=== PATIENT | female | born 1940 | race Caucasian/White ===

== ENCOUNTER → 2016-09-20 | Outpatient (CLI) | payer MEDICARE, OTHER ==
[~2016-09-20] MED LIST: ATOR-22 PO; HYDR25TA5 PO; LISI40TA PO; PRLSR20 PO; TAMO20TA47 PO
--- NOTE | 2016-09-20 13:33 | MAMMOGRAPHY REPORT ---
UNILATERAL RIGHT DIGITAL DIAGNOSTIC MAMMOGRAM TOMOSYNTHESIS WITH CAD AND TARGETED RIGHT ULTRASOUND: 09/20/2016 CLINICAL HISTORY: 76-year-old female presents to establish new baseline in the right breast status p ost lumpectomy and radiation. TECHNIQUE: Right breast CC and MLO to the digital and some of this is images, spot magnification rig ht CC and ML views were obtained. Current study was also evaluated with a Computer Aided Detection (CAD) system. COMPARISON: Comparison is made to exams dated: 03/30/2016 specimen, 03/30/2016 localization, 6 mammogram, and 03/01/2016 ultrasound biopsy - [facility]. BREAST COMPOSITION: The tissue of the right breast is heterogeneously dense, which may obscure smal l masses. FINDINGS: There is mild diffuse skin thickening and trabecular edema of the right breast, likely sec ondary to recent treatment. A linear scar marker overlies the 11:00 through 1:00 anterior breast. There are benign rim calcifications and mild vascular calcifications. Diffuse faint punctate microc alcifications are seen throughout the right breast. No new suspicious grouping or cluster of microc alcifications. No obvious mass or unexpected architectural distortion. Targeted ultrasound was performed along the surgical scar extending from the 11:00 and 12:00 periare olar right breast the 1:00 axis, 1 cm from the nipple. There is a hypoechoic architectural distorti on. No evidence of a discrete solid or cystic mass. These findings are compatible with postsurgica l change. IMPRESSION: ACR-BI-RADS CATEGORY 3: PROBABLY BENIGN, TARGETED ULTRASOUND ACR-BI-RADS CATEGORY 3: [place] OBABLY BENIGN Expected post-therapeutic changes in the right breast, without mammographic or targeted sonographic evidence of malignancy. Recommend follow-up diagnostic mammography in 6 months to ensure stability for one year after treatment in the right breast, and for annual mammography of the left breast. Th ofelia results and recommendations were discussed with the patient at the time of the exam. Approximately 10% of breast cancers are not detected with mammography. A negative mammographic repor t should not delay biopsy if a clinically suggestive mass is present. Zaira Valdovinos M.D. ay/:09/20/2016 11:00:10 Supervisor In Charge: Hope Lamar, [facility] letter sent: Follow Up Recommended 3 BI-RADS Code: ACR-BI-RADS Category 3: Probably Benign Ultrasound BI-RADS: ACR-BI-RADS Category 3: P robably Benign
== END | disposition home or self-care (01) ==
LOC: C.MAMM 10:21
PROVIDERS: ATTEND Radiology Radiation Oncology
DX: Z08 Encounter for follow-up examination after completed treatment for malignant neoplasm (principal); Z85.3 Personal history of malignant neoplasm of breast; Z98.890 Other specified postprocedural states; Z92.3 Personal history of irradiation

== ENCOUNTER → 2016-10-07 | Outpatient (CLI) | payer MEDICARE ==
[2016-10-07 13:01] LABS: ALT/SGPT 20 U/L (12-78); AST/SGOT 20 U/L (15-37); BLOOD UREA NITROGEN 17 mg/dl (7-18); BUN/CREATININE RATIO 14.4 (10-20); CALCIUM 9.1 mg/dl (8.5-10.1); CARBON DIOXIDE 26 mmol/L (21-32); CHLORIDE 95 mmol/L (98-107); CHOLESTEROL 190 mg/dl (0-200); GLUCOSE 89 mg/dl (70-99); POTASSIUM 3.8 mmol/L (3.5-5.1); SODIUM 132 mmol/L (136-145); TRIGLYCERIDES 152 mg/dl (0-150); VERY LOW DENSITY LIPOPROT CALC 30 mg/dl
[2016-10-07 13:05] LABS: ALB/GLOB RATIO 1.1 (0.9-2); ALKALINE PHOSPHATASE 57 U/L (45-117); HDL CHOLESTEROL 94 mg/dl
== END | disposition home or self-care (01) ==
LOC: C.LABSPEC 12:30
PROVIDERS: ATTEND Internal Medicine
DX: I10 Essential (primary) hypertension (principal); E78.5 Hyperlipidemia, unspecified

== ENCOUNTER → 2017-01-25 | Outpatient (CLI) | payer MEDICARE, OTHER ==
[2017-01-25 13:28] VITALS: BP 122/83; PULSE 79; TEMP 36.6; O2SAT 95
--- NOTE | 2017-01-25 16:46 | Radiation Oncology Follow-Up ---
Radiation Oncology Follow-Up Date of Visit Jan 25, 2017. (Mariana Florentino PA-C) Reason For Visit 6 month follow-up (Mariana Florentino PA-C) Radiation Completion Date finished 06-18-2016 (Mariana Florentino PA-C) Diagnosis (1) Ductal carcinoma in situ (DCIS) of right breast Status: Resolved Stage: 0 Permanent Comment: STAGING: Right breast, DCIS, grade 1, ER/[place] positive, Tis, stage 0 TREATMENT: 1. Lumpectomy - 03/30/2016 - Dr. Jeter (Surgery) 2. Tamoxifen - Dr. Lanier (Medical Oncology) 3. Status post completion of radiation therapy 06/18/2016. Received 5130 cGy utilizing hypo-fractionation. Last Edited By: Mariana Florentino on Jun 28, 2016 15:27 (Mariana Florentino PA-C) History of Present Illness Ms. Melendez is a 76-year-old postmenopausal female who underwent bilateral screening mammograms on 02/18/2016. Her screening mammogram revealed a 4.4 mm nodular asymmetry in the anterior right breast with possible right upper inner microcalcifications. The patient subsequently underwent unilateral right diagnostic mammogram on 02/25/2016 which confirmed a 4 mm mass in the anterior retroareolar right breast. Real-time high-resolution sonographic evaluation confirmed a slightly hypoechoic microlobulated mass measuring 4.6 mm in the greatest dimension. The radiologist recommended an ultrasound-guided biopsy which was completed on 03/01/2016 and revealed intraductal papilloma with low- grade ductal carcinoma in situ that was estrogen receptor positive and progesterone receptor positive. The patient was subsequently referred to Dr. Quinten Jeter who discussed treatment options and recommended a lumpectomy which was completed on 03/30/2016. Pathology revealed an intraductal papilloma with low-grade ductal carcinoma in situ. Margins were negative for the ductal carcinoma in situ however the papilloma was present at the posterior margin. The tumor was grade 1 and no necrosis was noted. The patient was subsequently referred to Dr. Ken Lanier for medical oncology who recommended tamoxifen and adjuvant radiation therapy. We are now seeing the patient in consultation to discuss the role of radiation therapy. Overall, the patient is doing relatively well. She has healed up well from surgery. She has mentioned that she is going on vacation in the next several weeks and would not like to start her treatment until afterwards. She has no other complaints. She underwent a CT simulation and was found to be a candidate for hypo- fractionation. Radiation was completed 06/18/2016. She received 5130 cGy (Mariana Florentino PA-C) Interim History She's been doing well over this past 6 months. She denies any changes to her breast. She has occasional tenderness on the lateral side. She has noted no masses. There is no change of the axilla. She's had no swelling of her arm. She is up-to-date on mammography. She had been on tamoxifen. She stopped the medication on her own at the end of the month. She was having symptoms of nausea and bladder irritation. She stated after stopping the medication the symptoms resolved. She is going to talk to Dr. Lanier about the side effects at her next appointment. She has an appointment scheduled within the next few weeks. (Mariana Florentino PA-C) Allergies Coded Allergies: Sulfa Antibiotics (Verified Allergy, Unknown, SWELLING, 03/22/16) Home Medications Scheduled Atorvastatin (Lipitor), 20 MG PO QAM Hydrochlorothiazide (Hydrochlorothiazide), 1 TAB PO QAM Lisinopril (Prinivil), 40 MG PO QAM Omeprazole (Prilosec), 20 MG PO QAM Review of Systems Gastrointestinal: Symptoms: WNL Oral: Symptoms: No Problems Respiratory: Symptoms: WNL Urinary: Symptoms: WNL Skin: Symptoms: No Problems Other Skin Symptoms: " dry " Breast: Right Upper Arm Measurement: 35.8 Right Mid Arm Measurement: 27.0 Right Wrist Measurement: 16.8 Left Upper Arm Measurement: 35.8 Left Mid Arm Measurement: 26.5 Left Wrist Measurement: 16.3 Arm Dominence: Right Patient Cosmetic Evaluation: Good Staff Cosmetic Evalaluation: Good (Mariana Florentino PA-C) Physical Exam Vital Signs Date Time Temp Pulse Resp B/P (MAP) Pulse Ox O2 Delivery O2 Flow Rate FiO2 01/25/17 13:28 36.6 79 16 122/83 95 Pain: Pain Onset: years ago Pain Duration: gets worse at times Side: Bilateral Patient Pain Scale: 0 - 10 Initial Pain Intensity: 4.0 Pain Description: Soreness Additional Comments: stiffness General Appearance: no apparent distress Eyes: normal inspection, EOMI ENT: normal ENT inspection, hearing grossly normal Neck: no adenopathy, thyroid normal Respiratory/Chest: lungs clear, no respiratory distress, no accessory muscle use Breast: Breast examination reveals well-healed incision of the right breast. There are no masses or tenderness and no axillary adenopathy. She has no telangiectasia. There are no skin retractions or nipple changes. Using the Berkley score cosmesis she has a in excellent outcome. The left breast showed no masses or tenderness and no axillary adenopathy. Cardiovascular: regular rate, rhythm, no gallop, no murmur Abdomen: non tender Extremities: no pedal edema Neurologic/Psychiatric: no motor/sensory deficits, alert, normal mood/affect Skin: warm/dry Lymphatic: no adenopathy (Mariana Florentino PA-C) Additional Studies UNILATERAL RIGHT DIGITAL DIAGNOSTIC MAMMOGRAM TOMOSYNTHESIS WITH CAD AND TARGETED RIGHT ULTRASOUND: 09/20/2016 CLINICAL HISTORY: 76-year-old female presents to establish new baseline in the right breast status post lumpectomy and radiation. TECHNIQUE: Right breast CC and MLO to the digital and some of this is images, spot magnification right CC and ML views were obtained. Current study was also evaluated with a Computer Aided Detection (CAD) system. COMPARISON: Comparison is made to exams dated: 03/30/2016 specimen, 03/30/2016 localization, 03/01/2016 mammogram, and 03/01/2016 ultrasound biopsy - [facility]. BREAST COMPOSITION: The tissue of the right breast is heterogeneously dense, which may obscure small masses. FINDINGS: There is mild diffuse skin thickening and trabecular edema of the right breast, likely secondary to recent treatment. A linear scar marker overlies the 11:00 through 1:00 anterior breast. There are benign rim calcifications and mild vascular calcifications. Diffuse faint punctate microcalcifications are seen throughout the right breast. No new suspicious grouping or cluster of microcalcifications. No obvious mass or unexpected architectural distortion. Targeted ultrasound was performed along the surgical scar extending from the 11: 00 and 12:00 periareolar right breast the 1:00 axis, 1 cm from the nipple. There is a hypoechoic architectural distortion. No evidence of a discrete solid or cystic mass. These findings are compatible with postsurgical change. IMPRESSION: ACR-BI-RADS CATEGORY 3: PROBABLY BENIGN, TARGETED ULTRASOUND ACR-BI -RADS CATEGORY 3: PROBABLY BENIGN Expected post-therapeutic changes in the right breast, without mammographic or targeted sonographic evidence of malignancy. Recommend follow-up diagnostic mammography in 6 months to ensure stability for one year after treatment in the right breast, and for annual mammography of the left breast. These results and recommendations were discussed with the patient at the time of the exam. Approximately 10% of breast cancers are not detected with mammography. A negative mammographic report should not delay biopsy if a clinically suggestive mass is present. Zaira Valdovinos M.D. ay/:09/20/2016 11:00:10 Anesthesia Attending: Hope Lamar, [facility] letter sent: Follow Up Recommended 3 BI-RADS Code: ACR-BI-RADS Category 3: Probably Benign Ultrasound BI-RADS: ACR- BI-RADS Category 3: Probably Benign Dictated by: Zaira Valdovinos MD Signed by: Zaira Valdovinos MD (Mairana Florentino PA-C) Assessment & Plan Plan: Patient was seen and examined by Dr. Dunn. Continue with scheduled mammography. She'll see Dr. Lanier and discuss her symptoms that she was having in regards to the tamoxifen. Continue regular follow-up with her primary care physician. We asked her to return to our office in 1 year. She may call if she has any questions or concerns in the interim. (Mariana Florentino PA-C) I agree with note created by Mariana Florentino PA-C. I reviewed the patient's chart and information with her. I have examined and evaluated the patient. I reviewed relevant clinical information and answered the patient's and/or family' s questions. (Veeral. Dunn MD) Total Time In Follow-Up I spent 20 minutes speaking to the patient and performing examination. I spent 15 minutes reviewing information and completing this note. (Mariana Florentino PA-C) I spent 15 minutes examining and counseling the patient. (Veeral. Dunn MD) Copy To Tk Porter M.D.; Ken Lanier D.O.
== END | disposition home or self-care (01) ==
LOC: C.ONC 13:11
PROVIDERS: ATTEND Physician Assistant Medical
DX: Z08 Encounter for follow-up examination after completed treatment for malignant neoplasm (principal); Z92.3 Personal history of irradiation; Z85.3 Personal history of malignant neoplasm of breast

== ENCOUNTER → 2017-02-11 | Outpatient (CLI) | payer MEDICARE ==
[~2017-02-11] MED LIST changes: +OPTIRAY 320 IV PRN
[2017-02-11 14:41] LABS: MEAN CORPUSCULAR HEMOGLOBIN 32.3 pg (25-34); MEAN CORPUSCULAR HGB CONC 34.4 g/dl (32-36); MEAN PLATELET VOLUME 9.3 fL (7.4-10.4); PLATELET COUNT 236 K/uL (130-400); RED BLOOD COUNT 4.15 M/uL (4.2-5.4); WHITE BLOOD COUNT 10.14 K/uL (4.8-10.8)
[2017-02-11 15:01] LABS: URINE APPEARANCE CLEAR (CLEAR); URINE BILIRUBIN NEG (NEG); URINE COLOR DK YELLOW; URINE EPITHELIAL CELL AUTO >30 /lpf (0-5); URINE NITRITE NEG (NEG); URINE SPECIFIC GRAVITY 1.016 (1.000-1.030); UROBILINOGEN NEG (NEG)
[2017-02-11 15:12] LABS: MANUAL MICROSCOPIC REQUIRED? NO; REVIEW REQ? NO
[2017-02-11 15:22] LABS: ALT/SGPT 24 U/L (12-78); BLOOD UREA NITROGEN 11 mg/dl (7-18); BUN/CREATININE RATIO 11.7 (10-20); CALCIUM 9.5 mg/dl (8.5-10.1); CARBON DIOXIDE 28 mmol/L (21-32); CHLORIDE 99 mmol/L (98-107); CREATININE 0.94 mg/dl (0.60-1.20); GLUCOSE 89 mg/dl (70-99); POTASSIUM 3.7 mmol/L (3.5-5.1); SODIUM 134 mmol/L (136-145)
[2017-02-11 15:25] LABS: ALB/GLOB RATIO 0.9 (0.9-2); ALKALINE PHOSPHATASE 54 U/L (45-117); AST/SGOT 19 U/L (15-37)
--- NOTE | 2017-02-11 17:39 | DIAGNOSTIC IMAGING REPORT ---
CT SCAN OF THE ABDOMEN AND PELVIS WITH IV CONTRAST CLINICAL HISTORY: Left lower quadrant abdominal pain. COMPARISON STUDY: Abdominal CT dated 06/04/2008. TECHNIQUE: Following the IV administration of 93 cc of Optiray 320, CT scan of the abdomen and pelvis is performed from the lung bases to the proximal femora. Images are reviewed in the axial, sagittal, and coronal planes. IV contrast was administered without complication. Automated dose control exposure was utilized. CT DOSE: 332.42 mGy.cm FINDINGS: Lung bases: The heart is normal in size and without pericardial effusion. There is subpleural reticulation and dependent atelectasis seen at both lung bases. No airspace consolidation or pleural effusion is identified. Liver: The contrast-enhanced liver is normal in size, contour, and attenuation. There is no intrahepatic biliary ductal dilatation. The hepatic veins and portal veins are patent. Gallbladder: Unremarkable. Spleen: Normal in size and attenuation. Pancreas: Unremarkable. Adrenal glands: Unremarkable. Kidneys: The contrast enhanced kidneys demonstrate mild cortical atrophy and are without hydronephrosis. The kidneys enhance symmetrically. Abdominal vasculature: The abdominal aorta is normal in course and caliber noting moderate atherosclerotic calcification. Bowel: The small bowel and colon are normal in course and caliber. There is moderate colonic diverticulosis. There is wall thickening and pericolonic inflammation seen involving the distal descending/proximal sigmoid colon consistent with acute diverticulitis. There is no evidence of diverticular abscess. The appendix is well-visualized and normal. Peritoneum: There is no intraperitoneal free air or abdominal ascites. Suture material is noted in the retroperitoneal space. Lymphadenopathy: No pathologically enlarged lymph nodes are seen in the abdomen or pelvis. Pelvic viscera: The bladder, uterus, and adnexa are normal as visualized. There is evidence of pelvic floor prolapse. Skeletal structures: The skeletal structures are osteopenic. There is moderate lumbosacral spondylosis as well as mild scoliosis. No lytic or blastic lesions are seen. IMPRESSION: 1. Moderate colonic diverticulosis with evidence of acute diverticulitis involving the distal descending/proximal sigmoid colon. 2. No intraperitoneal free air is seen and there is no evidence of diverticular abscess. 3. Additional findings as above. Electronically signed by: Pb Cadena M.D. 02/11/2017 5:38 PM Dictated Date/Time: 02/11/2017 5:11 PM
== END | disposition home or self-care (01) ==
LOC: C.CTS 14:06
PROVIDERS: ATTEND Internal Medicine
DX: R10.32 Left lower quadrant pain (principal); K57.30 Diverticulosis of large intestine without perforation or abscess without bleeding

== ENCOUNTER → 2017-03-21 | Outpatient (CLI) | payer MEDICARE, OTHER ==
[~2017-03-21] MED LIST changes: -OPTIRAY 320 IV PRN; -TAMO20TA47 PO
--- NOTE | 2017-03-21 12:29 | MAMMOGRAPHY REPORT ---
BILATERAL DIGITAL DIAGNOSTIC MAMMOGRAM TOMOSYNTHESIS WITH CAD: 03/21/2017 CLINICAL HISTORY: 76 year-old woman presents for bilateral screening mammography. She has a history of right breast cancer diagnosed 1 year ago, status post breast conservation treatment. TECHNIQUE: Bilateral CC and MLO 2-D and tomosynthesis images, spot magnification right CC and ML view s were obtained. Current study was also evaluated with a Computer Aided Detection (CAD) system. COMPARISON: Comparison is made to exams dated: 09/20/2016 ultrasound, 09/20/2016 mammogram, 03/30/2016 sp ecimen, 03/30/2016 localization, 03/01/2016 mammogram, and 03/01/2016 ultrasound biopsy - [facility]. BREAST COMPOSITION: There are scattered areas of fibroglandular density in both breasts. FINDINGS: There is mild diffuse skin thickening and trabecular edema of the right breast, a linear sc ar marker overlies the anterior aspect of the right breast. There is expected underlying architectur al distortion and a few benign-appearing calcifications including rim calcifications and tram-trackin g calcifications of the right breast. No new suspicious grouping or cluster of microcalcifications a re seen in the right breast. There is a stable circumscribed lobulated mass in the superior right br east on the MLO view, stable dating back to at least 2007, most likely an intramammary lymph node. N o suspicious mass, architectural distortion or cluster of suspicious microcalcifications is seen in t he right breast. Stable mammographic appearance of the left breast, with a few benign-appearing round and punctate li rocalcifications and mild vascular calcification. No suspicious mass, architectural distortion or clu ster of suspicious microcalcifications is seen in the left breast. IMPRESSION: ACR-BI-RADS CATEGORY 3: PROBABLY BENIGN Stable mammographic appearance of the breasts, including posttreatment changes in the right breast. Another six-month follow-up diagnostic right mammogram and possible ultrasound is recommended to ensu re longer stability after treatment, and to ensure stability of tram tracking calcifications which mo st likely represent vascular calcifications or postsurgical change. Recommend routine screening of t he left breast in 12 months. These results and recommendations were discussed with the patient at the time of the exam. Approximately 10% of breast cancers are not detected with mammography. A negative mammographic report should not delay biopsy if a clinically suggestive mass is present. Zaira Valdovinos M.D. ay/:03/21/2017 10:55:31 Distance Education Coordinator: Hope HILL(R)(M), [facility] letter sent: Follow Up Recommended 3 BI-RADS Code: ACR-BI-RADS Category 3: Probably Benign
== END | disposition home or self-care (01) ==
LOC: C.MAMM 10:19
PROVIDERS: ATTEND Physician Assistant Medical
DX: D05.11 Intraductal carcinoma in situ of right breast (principal); R92.1 Mammographic calcification found on diagnostic imaging of breast; Z98.890 Other specified postprocedural states

== ENCOUNTER → 2017-04-08 | Outpatient (CLI) | payer MEDICARE ==
[2017-04-08 13:15] LABS: CHOLESTEROL 180 mg/dl (0-200); CHOLESTEROL/HDL RATIO 2.2; HDL CHOLESTEROL 81 mg/dl; TRIGLYCERIDES 116 mg/dl (0-150); VERY LOW DENSITY LIPOPROT CALC 23 mg/dl
== END | disposition home or self-care (01) ==
LOC: C.LABSPEC 12:19
PROVIDERS: ATTEND Internal Medicine
DX: E78.5 Hyperlipidemia, unspecified (principal)

== ENCOUNTER → 2017-09-02 | Outpatient (CLI) | payer MEDICARE ==
[2017-09-02 13:15] LABS: BASO % 0.3 %; BASO ABS # 0.02 K/uL (0-0.2); EOS % 1.1 %; EOS ABS # 0.07 K/uL (0-0.5); HEMATOCRIT 40.6 % (37-47); HEMOGLOBIN 13.8 g/dL (12.0-16.0); IG# 0.01 K/uL (0.00-0.02); LYMPH % 26.7 %; LYMPH ABS # 1.73 K/uL (1.2-3.4); MEAN CELL VOLUME 93.8 fL (80-100); MEAN CORPUSCULAR HEMOGLOBIN 31.9 pg (25-34); MEAN PLATELET VOLUME 10.7 fL (7.4-10.4); MONO % 7.1 %; MONO ABS # 0.46 K/uL (0.11-0.59); NEUT % 64.6 %; PLATELET COUNT 288 K/uL (130-400); RED CELL DISTRIBUTION WIDTH CV 12.9 % (11.5-14.5); RED CELL DISTRIBUTION WIDTH SD 44.2 fL (36.4-46.3); WHITE BLOOD COUNT 6.49 K/uL (4.8-10.8)
[2017-09-02 15:45] LABS: ALBUMIN 3.7 gm/dl (3.4-5.0); ALT/SGPT 25 U/L (12-78); AST/SGOT 21 U/L (15-37); BLOOD UREA NITROGEN 16 mg/dl (7-18); CALCIUM 9.2 mg/dl (8.5-10.1); CARBON DIOXIDE 29 mmol/L (21-32); CREATININE 1.14 mg/dl (0.60-1.20); GLUCOSE 123 mg/dl (70-99); POTASSIUM 3.7 mmol/L (3.5-5.1); SODIUM 133 mmol/L (136-145)
[2017-09-02 15:48] LABS: ALKALINE PHOSPHATASE 81 U/L (45-117); TOTAL PROTEIN 7.1 gm/dl (6.4-8.2)
== END | disposition home or self-care (01) ==
LOC: C.LABSPEC 12:26
PROVIDERS: ATTEND Internal Medicine Hematology & Oncology
DX: D05.11 Intraductal carcinoma in situ of right breast (principal)

== ENCOUNTER → 2017-09-28 | Outpatient (CLI) | payer MEDICARE ==
--- NOTE | 2017-09-28 15:24 | MAMMOGRAPHY REPORT ---
UNILATERAL RIGHT DIGITAL DIAGNOSTIC MAMMOGRAM TOMOSYNTHESIS WITH CAD: 09/28/2017 CLINICAL HISTORY: 77-year-old woman with a personal history of right breast cancer status post breast conservation treatment presents for close follow-up in the right breast. TECHNIQUE: Right breast tomosynthesis in addition to standard 2D mammography was performed. Spot mag nification right CC and ML views were also obtained. Current study was also evaluated with a Compute r Aided Detection (CAD) system. COMPARISON: Comparison is made to exams dated: 03/21/2017 mammogram, 09/20/2016 mammogram, 03/01/2016 az[place] mogram, 02/25/2016 mammogram, 02/18/2016 mammogram, and 02/12/2015 mammogram - [facility]. BREAST COMPOSITION: There are scattered areas of fibroglandular density in the right breast. FINDINGS: A linear scar marker overlies the anterior superior right breast. There is expected yahir ectural distortion at the surgical site in the anterior right breast. There are benign rodlike sutur al and vascular calcifications as well as coarse benign rim calcifications in the right breast. A st able intramammary lymph node in the upper outer quadrant posteriorly. No new suspicious mass, yahir ectural distortion or cluster of microcalcifications is seen. IMPRESSION: ACR BI-RADS CATEGORY 2: BENIGN Expected post treatment changes in the right breast, without mammographic evidence of malignancy. Ret urn to annual mammogram screening schedule is recommended, due in March 2018. The patient has been verbally notified of the results. Approximately 10% of breast cancers are not detected with mammography. A negative mammographic report should not delay biopsy if a clinically suggestive mass is present. Zaira Valdovinos M.D. ay/:09/28/2017 10:08:29 Tobacco Roller: Astrid HILL(R)(M), [facility] letter sent: Normal 1/2 BI-RADS Code: ACR BI-RADS Category 2: Benign
== END | disposition home or self-care (01) ==
LOC: C.MAMM 09:24
PROVIDERS: ATTEND Physician Assistant Medical
DX: Z85.3 Personal history of malignant neoplasm of breast (principal); Z98.890 Other specified postprocedural states

== ENCOUNTER → 2017-10-13 | Outpatient (CLI) | payer MEDICARE ==
[2017-10-13 12:59] LABS: GLUCOSE,FASTING 93 mg/dl (70-99)
[2017-10-13 13:06] LABS: CHOLESTEROL 188 mg/dl (0-200); LDL CHOLESTEROL (DIRECT) 85 mg/dl
[2017-10-13 13:08] LABS: HEMOGLOBIN A1C 5.8 % (4.5-5.6)
== END | disposition home or self-care (01) ==
LOC: C.LABSPEC 12:25
PROVIDERS: ATTEND Internal Medicine
DX: R73.9 Hyperglycemia, unspecified (principal); E78.5 Hyperlipidemia, unspecified

== ENCOUNTER → 2017-10-13 | Outpatient (CLI) | payer MEDICARE | END | disposition home or self-care (01) | LOC: C.PAPS 12:45 | PROVIDERS: ATTEND Internal Medicine | DX: Z12.4 Encounter for screening for malignant neoplasm of cervix (principal) ==

== ENCOUNTER → 2018-03-28 | Outpatient (CLI) | payer MEDICARE ==
--- NOTE | 2018-03-29 13:51 | MAMMOGRAPHY REPORT ---
BILATERAL DIGITAL SCREENING MAMMOGRAM TOMOSYNTHESIS WITH CAD: 03/28/2018 CLINICAL HISTORY: Asymptomatic. Personal history of breast cancer. TECHNIQUE: The study was acquired using full field digital technology and interpreted from soft copy. Breast tomosynthesis in addition to standard 2D mammography was performed. Current study was also ev aluated with a Computer Aided Detection (CAD) system. COMPARISON: Comparison is made to exams dated: 09/28/2017 mammogram, 03/21/2017 mammogram, 02/18/2016 aziza mogram, 02/12/2015 mammogram, 02/11/2014 mammogram, and 02/09/2013 mammogram - [facility]. BREAST COMPOSITION: There are scattered areas of fibroglandular density in both breasts. FINDINGS: There are stable expected postsurgical/posttreatment changes in the right breast. A linear scar marker overlies the medial right breast. There are benign rodlike and linear sutural calcifica tions in the right breast. Mild vascular calcification and other scattered punctate microcalcificati ons bilaterally. Stable intramammary lymph node in the right upper outer posterior breast. No new lopez spicious mass, architectural distortion or cluster of microcalcifications is seen. IMPRESSION: ACR BI-RADS CATEGORY 1: NEGATIVE There is no mammographic evidence of malignancy. A 1 year screening mammogram is recommended.( 019) The patient will receive written notification of the results. Some breast cancers are not detected with mammography. A negative mammographic report should not ubaldo y biopsy if a clinically suggestive mass is present. Zaira Valdovinos M.D. ay/:03/28/2018 16:05:40 Bomb Squad Officer: RT Puma(Mel)(M), [facility] letter sent: Normal 1/2 BI-RADS Code: ACR BI-RADS Category 1: Negative
== END | disposition home or self-care (01) ==
LOC: C.MAMM 12:24
PROVIDERS: ATTEND Internal Medicine
DX: Z12.31 Encounter for screening mammogram for malignant neoplasm of breast (principal)

== ENCOUNTER 2024-08-18 16:14 | Inpatient (IN) ==
--- NOTE | 2024-08-18 16:53 | Emergency Department Note ---
Impression & Plan Closed right hip fracture, Acute pain of right hip, Fall ED Provider Note ED Provider Note NAME: WALKER LIM AGE:84 SEX: Female : 1940 ARRIVES VIA: EMS INFORMANT: Patient ED PROVIDER(s): Meme Frey DO CHIEF COMPLAINT: Fall, right hip pain HPI: This is an 84-year-old female who presents via EMS after an accidental fall at home with accompanying right hip pain. Patient states she was carrying groceries in her home. She has a bilevel home and went to take the first step to go up a level and missed it losing her balance subsequently falling backwards and landing on her right side. She states she hit her right hip first followed by the right shoulder and then the right side of her head. She denies any loss of consciousness. She denies neck or back pain. She was unable to get up on her own and call 911. She was given fentanyl en route by EMS with improvement in her pain. She states she cannot move the right hip. No prior issues with the right hip. She denies any coming numbness or tingling. She denies headache, dizziness, chest pain, difficulty breathing, abdominal pain, or nausea. She was given fentanyl IV by EMS for pain prior to arrival. Patient does not routinely use antiplatelet or anticoagulation medication. PAST MEDICAL HISTORY:See Below PAST SURGICAL HISTORY:See Below FAMILY HISTORY:See Below SOCIAL HISTORY:See Below HOME MEDICATIONS:See Below ALLERGIES:See Below VITALS:See Below PHYSICAL EXAMINATION: GENERAL: alert, well appearing, well nourished, no distress, non-toxic HEAD: nc/at, no evidence of facial trauma, no auguste signs, no raccoon eyes EYE EXAM: normal conjunctiva, PERRL and EOM's grossly intact OROPHARYNX: no exudate, no erythema, lips, buccal mucosa, and tongue normal and mucous membranes are moist NECK: supple, no nuchal rigidity, no adenopathy, non-tender, FROM LUNGS: Clear to auscultation. Normal chest wall mechanics, no w/r/r HEART: no murmurs, S1 normal and S2 normal CHEST WALL: No crepitus, nontender with palpation ABDOMEN: abdomen soft, non-tender, normo-active bowel sounds, no masses, no rebound or guarding. PELVIS: Stable to compression, pain with palpation of the right lateral hip BACK: Back is symmetrical on inspection and there is no deformity, no midline tenderness, no CVA tenderness. SKIN: no rashes, petechiae, orbruising UPPER EXTREMITIES: upper extremities are grossly normal. FROM, nml pulses b/l. LOWER EXTREMITIES: No pitting edema. FROM LLE, nml pulses b/l. No obvious trauma bilateral lower extremities. Decreased range of motion of the right hip secondary to pain. No obvious deformity and no pain with palpation to the rest of the distal right lower extremity, sensation intact bilaterally. Compartments soft. NEURO EXAM: Normal sensorium, cranial nerves II-XII grossly intact, normal speech, no facial droop,nogross weakness of arms, no gross weakness of legs. Gross sensation intact. No ataxia. Vital Signs: reviewed and remarkable Differential Diagnosis: Fracture, subluxation, dislocation, contusion, ligamentous injury, neurovascular, compartment syndrome, rhabdomyolysis, as well as other pathologies. MEDICAL DECISION MAKING: This is an 84-year-old female who presents emergency department following an accidental fall today at her home. She was afebrile and vital signs stable. Labs drawn and sent, IV established, EKG and x-rays performed at bedside interpreted me and patient monitored on telemetry. She was started on IV fluids given IV Tylenol additionally for pain. X-rays were initially reassuring and no obvious fracture seen, however due to high suspicion based on mechanism and pain, a CT of the hip was added on to the other CTs already ordered. Patient CT head and C-spine are reassuring over CT hip confirmed a right femoral neck fracture. Patient and family at bedside updated on all results and need for further inpatient management and orthopedic consultation. Patient has previously seen Dr. Espinosa of orthopedics. Case discussed with [facility] hospitalist team for additional evaluation and management. A Williams text was sent to on-call orthopedics, Dr. Bennett regarding patient's findings here. I have a low suspicion for any additional occult traumatic injury at this time. Consultation(s): 1844: Discussed with Dr. Bourgeois, [place] hospitalist team, for additional evaluation and management. ER Treatment Provided: See below Diagnostics Interpreted By Me: -ECG: Sinus tachycardia 105, normal axis, normal intervals, no acute ST/T wave changes -Cardiac Monitoring: An order was placed for continuous cardiac monitoring. The monitor shows a rate of 98 with normal sinus rhythm. -Laboratory studies: As stated above and show below. -Imaging studies: X-ray Chest: A single view study of the chest was reviewed and was negative for cardiomegaly, focal infiltrate, effusion, pulmonary edema, or wide mediastinum. No obvious rib fracture or pneumothorax. 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 Encounter for pre-operative examination Osteopenia Nevus of back GERD (gastroesophageal reflux disease) Mixed hyperlipidemia Primary hypertension DDD (degenerative disc disease), lumbar Bilateral primary osteoarthritis of knee Medical History Chronic hyponatremia Prediabetes Osteoarthritis Degenerative disc disease Acid reflux controlled, stable per pt History of right breast cancer diagnosed 2014--lumpectomy/radiation-denies limb restriction Depression Hypertension controlled, stable per pt Hyperlipidemia Mixed conductive and sensorineural hearing loss of left ear with restricted hearing of right ear History of bacteremia (~04/2023) hx 04/2023--resolved Surgical History History of bilateral tubal ligation History of colonoscopy History of wisdom tooth extraction History of placement of ear tubes History of bilateral cataract extraction H/O lumpectomy 2014--right breast History of carpal tunnel surgery right wrist Family History Mother Breast cancer Sister Breast cancer Son Myocardial infarction Son Valvular heart disease mitral valve surgery Other No family history of adverse response to anesthesia Denies family history of Ovarian cancer Prostate cancer Lung cancer Colorectal cancer Stroke Social History Smoking Status: Never smoker Second Hand Exposure: No; Do You Dip or Chew Tobacco: No; Hx Alcohol Use: Yes Alcohol type: wine Alcohol Intake Frequency: Monthly or Less Hx Substance Use: No Preferred Language: [place] Communication Ability: Effective Visual Impairment: No Limitations Hearing Ability: Normal Wiring Technician Required: No Beliefs That Will Affect Care: None marital status: / Current Living Situation: Alone current occupational status: retired Feels Safe at Home: Yes Diet: regular Assistive Devices: Cane, Glasses and Hearing Aid - Bilateral Allergies Allergies Allergy/AdvReac Type Severity Reaction Status Date / Time Sulfa (Sulfonamide Allergy Severe whole Verified 08/10/24 08:07 Antibiotics) face, legs, arms swelling nickel Allergy Mild soreness/swelling Verified 08/10/24 08:07 with earrings lisinopril AdvReac Mild Cough Verified 08/10/24 08:07 Home Meds Home Medications Medication Instructions Recorded Confirmed cholecalciferol (vitamin D3) 25 2,000 unit PO QAM 12/28/22 08/18/24 mcg (1,000 unit) capsule fluoride (sodium) 1.1 % dental 1 applic dental 05/12/23 08/18/24 paste (PreviDent 5000 Dry Mouth) amlodipine 5 mg tablet 5 mg PO QA 07/23/24 08/18/24 atorvastatin 20 mg tablet 20 mg PO 07/23/24 08/18/24 citalopram 10 mg tablet 10 mg PO 07/23/24 08/18/24 efinaconazole 10 % topical 1 applic topical 07/23/24 08/18/24 solution with applicator (Jublia) hydrochlorothiazide 12.5 mg tablet 12.5 mg PO QA 07/23/24 08/18/24 omeprazole 20 mg capsule,delayed 20 mg PO [facility] 07/23/24 08/18/24 release telmisartan 40 mg tablet 40 mg PO 07/23/24 08/18/24 Results & Data (ED) Vital Signs Vital Signs - 24 hr 08/18/24 16:04 08/18/24 16:20 08/18/24 16:27 Temperature 36.6 C Temperature Source Oral Pulse Rate 76 72 Pulse Rate [Apical] Pulse Rate from SpO2 Sensor Respiratory Rate 16 16 Blood Pressure 142/89 H Blood Pressure [Left Arm] Blood Pressure Mean 106 Blood Pressure Mean [Left Arm] Pulse Oximetry 98 Sepsis Recent Fever Within 48 Hours No Sepsis New/Unexplained Change in Mental Status N/A Sepsis Action Taken by Nursing No Action Required 08/18/24 16:33 08/18/24 16:48 08/18/24 16:54 Temperature Temperature Source Pulse Rate 73 75 74 Pulse Rate [Apical] Pulse Rate from SpO2 Sensor 72 80 75 Respiratory Rate 18 21 21 Blood Pressure Blood Pressure [Left Arm] Blood Pressure Mean Blood Pressure Mean [Left Arm] Pulse Oximetry 99 99 99 Sepsis Recent Fever Within 48 Hours Sepsis New/Unexplained Change in Mental Status Sepsis Action Taken by Nursing 08/18/24 17:09 08/18/24 17:12 08/18/24 17:20 Temperature Temperature Source Pulse Rate 90 98 H Pulse Rate [Apical] 109 H Pulse Rate from SpO2 Sensor 88 101 H Respiratory Rate 18 22 18 Blood Pressure Blood Pressure [Left Arm] 142/89 H Blood Pressure Mean Blood Pressure Mean [Left Arm] 106 Pulse Oximetry 97 94 96 Sepsis Recent Fever Within 48 Hours Sepsis New/Unexplained Change in Mental Status Sepsis Action Taken by Nursing 08/18/24 17:30 08/18/24 17:57 08/18/24 18:18 Temperature Temperature Source Pulse Rate 83 95 H 90 Pulse Rate [Apical] Pulse Rate from SpO2 Sensor 83 91 H 95 H Respiratory Rate 19 16 18 Blood Pressure Blood Pressure [Left Arm] Blood Pressure Mean Blood Pressure Mean [Left Arm] Pulse Oximetry 95 93 95 Sepsis Recent Fever Within 48 Hours Sepsis New/Unexplained Change in Mental Status Sepsis Action Taken by Nursing 08/18/24 18:21 08/18/24 18:23 08/18/24 18:33 Temperature Temperature Source Pulse Rate 114 H 96 H Pulse Rate [Apical] 94 H Pulse Rate from SpO2 Sensor 114 H 102 H Respiratory Rate 17 18 15 Blood Pressure Blood Pressure [Left Arm] 142/89 H Blood Pressure Mean Blood Pressure Mean [Left Arm] 106 Pulse Oximetry 95 96 94 Sepsis Recent Fever Within 48 Hours Sepsis New/Unexplained Change in Mental Status Sepsis Action Taken by Nursing Laboratory Data 08/18/24 17:00 08/18/24 17:00 Lab Results 08/18/24 Range/Units 17:00 WBC 8.82 (4.8-10.8) K/ul RBC 4.23 (4.20-5.40) M/uL Hgb 12.8 (12.0-16.0) g/dl Hct 37.8 (37.0-47.0) % MCV 89.4 (80.0-100.0) fL MCH 30.3 (25.0-34.0) pg MCHC 33.9 (32.0-36.0) g/dL RDW Std Deviation 42.4 (36.4-46.3) fL RDW Coeff of Gladys 13.0 (11.5-14.5) % Plt Count 212 (130-400) K/uL MPV 10.4 (9.4-12.4) fL Immature Gran % (Auto) 0.7 % Neut % (Auto) 79.7 % Lymph % (Auto) 12.8 % Phillips % (Auto) 6.2 % Eos % (Auto) 0.3 % Baso % (Auto) 0.3 % Neut # (Auto) 7.02 H (1.40-6.50) K/uL Lymph # (Auto) 1.13 L (1.20-3.40) K/uL Phillips # (Auto) 0.55 (0.11-0.59) K/uL Eos # (Auto) 0.03 (0.00-0.50) K/uL Baso # (Auto) 0.03 (0.00-0.20) K/uL Immature Gran # (Auto) 0.06 (0.01-0.20) K/uL PT 10.8 (9.0-12.0) Seconds INR 1.0 (0.9-1.1) Sodium 132 L (136-145) mmol/L Potassium 3.6 (3.5-5.1) mmol/L Chloride 97 L (98-107) mmol/L Carbon Dioxide 29 (21-32) mmol/L Anion Gap 6 (3-11) BUN 23 (6-23) mg/dl Creatinine 0.88 (0.6-1.2) mg/dl Est Cr Clr Drug Dosing 47.7 ml/min eGFR 65.57 BUN/Creatinine Ratio 26.1 H (10-20) Glucose 102 H (70-99(Fasting)) mg/dl Calcium 9.3 (8.6-10.3) mg/dl Magnesium 1.9 (1.7-2.4) mg/dl Total Bilirubin 0.7 (0.2-1.0) mg/dl AST 23 (13-39) U/L ALT 17 (7-52) U/L Alkaline Phosphatase 76 (34-104) U/L Total Protein 6.4 (6.0-8.3) gm/dl Albumin 4.0 (3.4-5.0) gm/dl Globulin 2.4 L (2.5-4.0) gm/dl Albumin/Globulin Ratio 1.7 (0.9-2) Lipase 47 (11-82) U/L Administered Medications Atorvastatin Calcium (Atorvastatin 20 Mg Tab) 20 mg PO HS SALLY Stop: 09/17/24 20:59 Last Admin: 08/18/24 21:54 Dose: 20 mg Documented By: CASH Citalopram Hydrobromide (Citalopram 20 Mg Tab) 10 mg PO HS SALLY Stop: 09/17/24 21:29 Last Admin: 08/18/24 21:54 Dose: 10 mg Documented By: CASH Sodium Chloride (Nss) 1,000 mls @ 125 mls/hr IV .Q8H SALLY Stop: 08/19/24 16:59 Last Admin: 08/18/24 17:16 Dose: 125 mls/hr Documented By: KATRINA Losartan Potassium (Losartan Potassium 50 Mg Tab) 50 mg PO HS SALLY Stop: 09/17/24 21:29 Last Admin: 08/18/24 21:54 Dose: 50 mg Documented By: CASH Morphine Sulfate (Morphine Sulfate 2 Mg/Ml Carp) 2 mg IV Q6 PRN PRN Reason: Moderate Pain (Scale 4, 5, 6) Stop: 09/01/24 20:12 Last Admin: 08/18/24 21:55 Dose: 2 mg Documented By: CASH Ondansetron HCl (Ondansetron Inj 2 Mg/Ml 2 Ml Vial) 4 mg IV Q6H PRN PRN Reason: Nausea Stop: 09/17/24 20:12 Last Admin: 08/18/24 21:55 Dose: 4 mg Documented By: CASH Discontinued Medications Acetaminophen (Ofirmev) 1,000 mg in 100 mls @ 400 mls/hr IV NOW STA Stop: 08/18/24 17:03 Last Infusion: 08/18/24 17:37 Dose: Infused Documented By: Admin: 08/18/24 17:16 Dose: 400 mls/hr Documented By: KATRINA Imaging Data Radiologist's Impression: Cervical Spine CT 08/18/24 16:48 CT cervical spine without IV contrast History: Pain Comparison: None Technique: Using multidetector thin collimation helical acquisition technique, axial, coronal and sagittal CT images through the cervical spine were obtained without intravenous contrast. Dose reduction techniques were achieved by using automatic exposure control and/or adjustment of mA and/or kV according to patient size and/or use of iterative reconstruction technique. Findings: The cervical vertebrae are normally aligned. Straightened cervical lordosis. No acute fracture or subluxation. No prevertebral edema. Osteopenia. Severe degenerative disc height loss at C5-6 and C6-7. Moderate multilevel hypertrophic degenerative facet changes, right greater than left. No abnormality of the paraspinous soft tissues. Impression: No acute fracture or traumatic subluxation. Electronically signed by Paul Batres 08-18-2024 6:[address] 08/18/24 16:48 CT head without contrast History: Trauma Comparison: None Technique: Using multidetector thin collimation helical acquisition technique, axial, coronal and sagittal CT images from the skull base to the vertex were obtained without intravenous contrast. Dose reduction techniques were achieved by using automatic exposure control and/or adjustment of mA and/or kV according to patient size and/or use of iterative reconstruction technique. Findings: No intracranial hemorrhage, mass-effect, or midline shift. The ventricles are proportionate to the cerebral sulci. The mustafa to white matter differentiation of the cerebral hemispheres is preserved. The basal cisterns are patent. There is moderate cerebral atrophy. Moderate, patchy low-attenuation changes in the white matter, most suggestive of sequelae of chronic small vessel ischemic disease. The visualized paranasal sinuses are clear. Mastoid air cells are clear. Impression: No acute intracranial pathology. Electronically signed by Paul Batres 08-18-2024 6:08 PM Hip/Pelvis X-Ray 08/18/24 16:48 Study: Pelvis 1 view, right hip 2 views History: Pain Comparison: None Findings/impression: No left hip fracture. The bones appear osteopenic. Incomplete evaluation of the right femoral neck, which is foreshortened due to patient positioning. No displaced fracture is seen, especially on the lateral view, however a nondisplaced fracture is difficult to entirely exclude. Consider CT if there is further clinical concern. Electronically signed by Paul Batres 08-18-2024 5:[address] 08/18/24 17:41 CT extremity, right hip without contrast History: Pain/weakness Comparison: Same-day radiograph Technique: CT performed of the extremity without IV contrast. 3D reconstructions performed. Dose reduction techniques were achieved by using automatic exposure control and/or adjustment of mA and/or kV according to patient size and/or use of iterative reconstruction technique. Findings: The bones are osteopenic. There is a right subcapital femoral neck fracture, with anterior apex angulation and foreshortening. Joint spaces are normally aligned. Degenerative osteophytes of the acetabulum. Enthesophytes of the greater tuberosity of the right femur. No visualized soft tissue abnormality. No aggressive osseous lesion. Impression: There is a right femoral neck fracture Electronically signed by Paul Batres 08-18-2024 6:16 PM Discharge Plan Visit Data Chief Complaint: Fall Stated Complaint: FALL, R HIP PAIN ED Provider: Meme Frey Discharge Problem: Closed right hip fracture, Acute pain of right hip, Fall Discharge Instructions Interventions: ED Discharge Assessment Last Done: 08/18/24 21:42
[2024-08-18] MEDS: SODIUM CHLORIDE 0.9% 1,000 ML IV SCH (17:16)
[2024-08-18] MEDS: ACETAMINOPHEN 1,000 MG/100 ML VIAL IV STA (17:16)
--- NOTE | 2024-08-18 17:31 | XRay Report ---
Study: Pelvis 1 view, right hip 2 views History: Pain Comparison: None Findings/impression: No left hip fracture. The bones appear osteopenic. Incomplete evaluation of the right femoral neck, which is foreshortened due to patient positioning. No displaced fracture is seen, especially on the lateral view, however a nondisplaced fracture is difficult to entirely exclude. Consider CT if there is further clinical concern. Electronically signed by Paul Batres 08-18-2024 5:31 PM
[2024-08-18 17:36] LABS: Basophils # (auto) 0.03 K/uL (0.00-0.20); Basophils % (auto) 0.3 %; Eosinophils # (auto) 0.03 K/uL (0.00-0.50); Eosinophils % (auto) 0.3 %; Hematocrit (blood only) 37.8 % (37.0-47.0); Hemoglobin 12.8 g/dl (12.0-16.0); Immature Granulocytes # (auto) 0.06 K/uL (0.01-0.20); Immature Granulocytes % (auto) 0.7 %; Lymphocytes # (auto) 1.13 K/uL (1.20-3.40); Lymphocytes % (auto) 12.8 %; Mean Corpuscular Hemoglobin 30.3 pg (25.0-34.0); Mean Corpuscular Hgb Conc 33.9 g/dL (32.0-36.0); Mean Corpuscular Volume 89.4 fL (80.0-100.0); Mean Platelet Volume 10.4 fL (9.4-12.4); Monocytes # (auto) 0.55 K/uL (0.11-0.59); Monocytes % (auto) 6.2 %; Neutrophils # (auto) 7.02 K/uL (1.40-6.50); Neutrophils % (auto) 79.7 %; Platelet Count 212 K/uL (130-400); RDW Standard Deviation 42.4 fL (36.4-46.3); Red Blood Count 4.23 M/uL (4.20-5.40); White Blood Count 8.82 K/ul (4.8-10.8)
[2024-08-18 17:50] LABS: Albumin Globulin Ratio 1.7 (0.9-2); BUN Creatinine Ratio 26.1 (10-20); Bilirubin,Total 0.7 mg/dl (0.2-1.0); Calcium 9.3 mg/dl (8.6-10.3); Creatinine Clr Calc Pharmacy 47.7 ml/min; Globulin 2.4 gm/dl (2.5-4.0); Magnesium 1.9 mg/dl (1.7-2.4); Potassium 3.6 mmol/L (3.5-5.1); Total Protein 6.4 gm/dl (6.0-8.3)
[2024-08-18 17:58] LABS: Prothrombin Time 10.8 Seconds (9.0-12.0)
--- NOTE | 2024-08-18 18:08 | CT Scan Report ---
CT head without contrast History: Trauma Comparison: None Technique: Using multidetector thin collimation helical acquisition technique, axial, coronal and sagittal CT images from the skull base to the vertex were obtained without intravenous contrast. Dose reduction techniques were achieved by using automatic exposure control and/or adjustment of mA and/or kV according to patient size and/or use of iterative reconstruction technique. Findings: No intracranial hemorrhage, mass-effect, or midline shift. The ventricles are proportionate to the cerebral sulci. The mustafa to white matter differentiation of the cerebral hemispheres is preserved. The basal cisterns are patent. There is moderate cerebral atrophy. Moderate, patchy low-attenuation changes in the white matter, most suggestive of sequelae of chronic small vessel ischemic disease. The visualized paranasal sinuses are clear. Mastoid air cells are clear. Impression: No acute intracranial pathology. Electronically signed by Paul Batres 08-18-2024 6:08 PM
--- NOTE | 2024-08-18 18:08 | CT Scan Report ---
CT cervical spine without IV contrast History: Pain Comparison: None Technique: Using multidetector thin collimation helical acquisition technique, axial, coronal and sagittal CT images through the cervical spine were obtained without intravenous contrast. Dose reduction techniques were achieved by using automatic exposure control and/or adjustment of mA and/or kV according to patient size and/or use of iterative reconstruction technique. Findings: The cervical vertebrae are normally aligned. Straightened cervical lordosis. No acute fracture or subluxation. No prevertebral edema. Osteopenia. Severe degenerative disc height loss at C5-6 and C6-7. Moderate multilevel hypertrophic degenerative facet changes, right greater than left. No abnormality of the paraspinous soft tissues. Impression: No acute fracture or traumatic subluxation. Electronically signed by Paul Batres 08-18-2024 6:08 PM
--- NOTE | 2024-08-18 18:16 | CT Scan Report ---
CT extremity, right hip without contrast History: Pain/weakness Comparison: Same-day radiograph Technique: CT performed of the extremity without IV contrast. 3D reconstructions performed. Dose reduction techniques were achieved by using automatic exposure control and/or adjustment of mA and/or kV according to patient size and/or use of iterative reconstruction technique. Findings: The bones are osteopenic. There is a right subcapital femoral neck fracture, with anterior apex angulation and foreshortening. Joint spaces are normally aligned. Degenerative osteophytes of the acetabulum. Enthesophytes of the greater tuberosity of the right femur. No visualized soft tissue abnormality. No aggressive osseous lesion. Impression: There is a right femoral neck fracture Electronically signed by Paul Batres 08-18-2024 6:16 PM
[2024-08-18] MEDS ORDERED: MoRPHine SULFATE 2 MG/ML CARP IV PRN (18:38)
[2024-08-18] MEDS ORDERED: ACETAMINOPHEN 325 MG TAB PO PRN (20:13)
--- NOTE | 2024-08-18 20:23 | History & Physical Report ---
Date of Service August 18, 2024 Assessment & Plan (1) Closed right hip fracture: Plan: Assessment: 1. Status post mechanical fall with sustained acute right hip fracture. Orthopedics consulted. Tentative plan is for surgery in the morning. N.p.o. after midnight. 2. History of hypertension. Continue home medications. 3. Dyslipidemia. Continue home medication. 4. GERD. 5. History of breast carcinoma very remotely status post lumpectomy and radiation years ago. 6. Lung mass undetermined etiology. She is due for an outpatient PET scan on Tuesday of this coming week. She follows with pulmonology. This PET scan may need to be rescheduled pending discharge from hospital. 7. Degenerative disc disease/osteoarthritis. Plan: As discussed above. No medical reason at this time to hold up surgery. Patient is low to moderate risk due to her chronic medical illnesses. But they appear to be fairly well-controlled and optimized for hip surgery tomorrow. It is noted today today is the patient's birthday. We did discuss with her and wish her happy birthday she was appreciative of our time and all her questions and her [id number]'s questions were answered to their satisfaction. Please refer to orders for further planning. History of Present Illness Chief Complaint: Mechanical fall down 1-2 steps with right hip pain Primary Care Provider: Naomi Pfeiffer MD Pleasant 84-year-old female went and got some groceries was trying to get her groceries up the steps had a mechanical fall. She had resultant right hip pain presented the ER for further evaluation and treatment. Head CT and cervical spine CT were negative for acute findings. Plain film x-rays of the hip are inconclusive CAT scan was performed which demonstrated right femoral neck fracture. We are called admit the patient further evaluation and treatment and orthopedic consultation orthopedics has been consulted and plan is to operate at 7:30 in the morning. Will keep the patient n.p.o. after midnight. The patient has no other complaints. She denies any loss of consciousness pre or post fall this was a mechanical fall. Allergies Allergy/AdvReac Type Severity Reaction Status Date / Time Sulfa (Sulfonamide Allergy Severe whole Verified 08/10/24 08:07 Antibiotics) face, legs, arms swelling nickel Allergy Mild soreness/swelling Verified 08/10/24 08:07 with earrings lisinopril AdvReac Mild Cough Verified 08/10/24 08:07 Home Medications Medication Instructions Recorded Confirmed Type cholecalciferol (vitamin D3) 25 2,000 unit PO QAM 12/28/22 08/10/24 History mcg (1,000 unit) capsule fluoride (sodium) 1.1 % dental 1 applic dental HS 05/12/23 08/10/24 History paste (PreviDent 5000 Dry Mouth) amlodipine 5 mg tablet 5 mg PO QAM 07/23/24 08/10/24 History atorvastatin 20 mg tablet 20 mg PO HS 07/23/24 08/10/24 History citalopram 10 mg tablet 10 mg PO HS 07/23/24 08/10/24 History efinaconazole 10 % topical 1 applic topical HS 07/23/24 08/10/24 History solution with applicator (Jublia) hydrochlorothiazide 12.5 mg tablet 12.5 mg PO QAM 07/23/24 08/10/24 History omeprazole 20 mg capsule,delayed 20 mg PO QAM 07/23/24 08/10/24 History release telmisartan 40 mg tablet 40 mg PO HS 07/23/24 08/10/24 History Past Med/Surg History Problem List (Updated 08/18/24 @ 20:21 by Clemente Bourgeois, PhD, DO) Closed right hip fracture Fall (Acute) Acute pain of right hip (Acute) Mass of lower lobe of left lung Encounter for pre-operative examination Osteopenia Nevus of back GERD (gastroesophageal reflux disease) Mixed hyperlipidemia Primary hypertension DDD (degenerative disc disease), lumbar Bilateral primary osteoarthritis of knee Medical History (Updated 08/18/24 @ 20:21 by Clemente Bourgeois, PhD, DO) Chronic hyponatremia Prediabetes Osteoarthritis Degenerative disc disease Acid reflux controlled, stable per pt History of right breast cancer diagnosed 2014--lumpectomy/radiation-denies limb restriction Depression Hypertension controlled, stable per pt Hyperlipidemia Mixed conductive and sensorineural hearing loss of left ear with restricted hearing of right ear History of bacteremia (~04/2023) hx 04/2023--resolved Surgical History History of bilateral tubal ligation History of colonoscopy History of wisdom tooth extraction History of placement of ear tubes History of bilateral cataract extraction H/O lumpectomy History of carpal tunnel surgery Family History Mother Breast cancer Sister Breast cancer Son Myocardial infarction Son Valvular heart disease Other No family history of adverse response to anesthesia Denies family history of Ovarian cancer Prostate cancer Lung cancer Colorectal cancer Stroke Social History Smoking Status: Never smoker Second Hand Exposure: No; Do You Dip or Chew Tobacco: No; Hx Alcohol Use: Yes Alcohol type: wine Alcohol Intake Frequency: Monthly or Less Hx Substance Use: No Preferred Language: Taiwanese Communication Ability: Effective Visual Impairment: No Limitations Hearing Ability: Normal Wringer Machine Operator Required: No Beliefs That Will Affect Care: None marital status: / Current Living Situation: Alone current occupational status: retired Feels Safe at Home: Yes Diet: regular Assistive Devices: Cane, Glasses and Hearing Aid - Bilateral Review of Systems Review of Systems: A 10 point review of system was obtained and unless otherwise stated here or in history of present illness are negative and noncontributory to chief complaint. Physical Exam Physical Exam: In General: In general this is a 84-year-old female is alert and oriented x 3 at the time my exam. She is accompanied by her [id number] at the time of my examination. She interacts appropriately and pleasantly. Her only complaint is her right hip pain. HEENT: Normocephalic atraumatic pupils are equal round and reactive to light bilaterally. No scleral icterus no conjunctival injection external auditory canals are patent septum is in the midline nose is without discharge oral mucosa is pink and moist without lesion. NECK: Supple no rigidity no lymphadenopathy no thyromegaly no carotid bruits no JVD no masses. HEART: Regular rate and rhythm I do not appreciate any ectopy or rub. No murmur. LUNGS: Clear to auscultation bilaterally and anteriorly with no evidence of adventitious sounds/wheezes rales or rhonchi. ABDOMEN: Soft nontender, no rebound, no peritoneal signs, positive bowel sounds , no appreciable organomegaly. EXTREMITIES: Neurovascularly intact, no peripheral cyanosis, clubbing or edema. NEUROLOGICAL: Cranial nerves II through XII are grossly intact with no focal deficit elicited upon examination. Results & Data Results & Data Vital Signs (Past 12 Hours) Vital Signs Temp Pulse Pulse Resp BP BP Pulse Ox 08/18/24 18:33 96 H 15 94 08/18/24 18:23 94 H 18 142/89 H 96 08/18/24 18:21 114 H 17 95 08/18/24 18:18 90 18 95 08/18/24 17:57 95 H 16 93 08/18/24 17:30 83 19 95 08/18/24 17:20 109 H 18 142/89 H 96 08/18/24 17:12 98 H 22 94 08/18/24 17:09 90 18 97 08/18/24 16:54 74 21 99 08/18/24 16:48 75 21 99 08/18/24 16:33 73 18 99 08/18/24 16:27 72 08/18/24 16:20 16 08/18/24 16:04 36.6 C 76 16 142/89 H 98 Code Status & VTE Plan Code Status Full code. I personally discussed with the patient today. However she would no t want extended life support/extended ventilatory support or any long-term life- sustaining interventions. But she would be okay with short-term ventilator and CPR if reasonable expectation was to regain a functional quality of life VTE Prophylaxis Plan VTE Prophylaxis will be ordered: Yes PG Care Time/CCT Total # of Minutes Spent Total Time Spent with Patient: Total time spent is greater than 50% in coordination of care (as documented) at patient's floor/unit and/or counseling patient: Coding Level of Care Code 77963 INT INP/OBS CARE 3/75MIN Diagnoses Closed right hip fracture S72.001A
[2024-08-18] MEDS ORDERED: FLUORIDE 1.1% DT SCH (21:00)
--- NOTE | 2024-08-18 21:42 | Orthopedic Consultation ---
Date of Consultation August 18, 2024 Assessment & Plan (1) Closed right hip fracture: The patient was educated regarding today's findings. Informed written consent was obtained to proceed with right hip hemiarthroplasty tomorrow morning. She will be made n.p.o. after midnight. She is currently admitted to the hospitalist service. She states her pain is currently controlled with IV and oral medication. Anticipate she will be in the hospital for a few nights after surgery. She states as long as she can get up the initial 6 steps to her home, everything else is on 1 floor, and she would like to go home postoperatively. She does not wish to proceed with a rehab facility or SNF. Her [id number] was present for today's discussion. She will require DVT prophylaxis postoperatively. Preoperative antibiotic has been ordered. In regard to her questionable nickel sensitivity, the patient states she has never had formal allergy testing. She had skin sensitivity with cheap earrings many years ago. She has not had any outbreaks from wrist bracelets or rings. She verbalizes an understanding of the potential for allergic reaction with the hip prosthesis given its small amount of nickel. She was initially scheduled for a PET scan here at the hospital on Tuesday. Hopefully her recovery is typical and she would still be able to proceed with her scan on Tuesday as scheduled. She has already postponed her total knee surgery with Dr. Espinosa. History of Present Illness Reason for Consultation: Right hip fracture Attending Physician: Clemente Bourgeois, PhD, DO History of Present Illness This 84-year-old female with a history of osteopenia, GERD, hyperlipidemia, hypertension, depression, chronic hyponatremia, degenerative disc disease, osteoarthritis, history of breast cancer, and current mass in the lower lobe of the left lung, is seen today in the ED for evaluation of a right hip fracture. The patient was at home this afternoon and was carrying groceries up steps. She lost her balance on the first step and fell backwards, landing on her right hip. She states there was immediate onset of pain. She was able to get herself up the steps and sit on a chair. She then called her [id number] for transport to the ED for evaluation. She denies any prior history of fracture. The patient was scheduled for total knee arthroplasty this coming Tuesday with Dr. Espinosa, but postponed secondary to the left lung mass found on her preop chest x-ray and subsequent chest CT. She currently complains of mild right hip pain that is worse with attempts at motion. She denies any numbness or tingling. She does not believe there was any loss of consciousness at the time of her fall. No other complaints. Allergies Allergy/AdvReac Type Severity Reaction Status Date / Time Sulfa (Sulfonamide Allergy Severe whole Verified 08/10/24 08:07 Antibiotics) face, legs, arms swelling nickel Allergy Mild soreness/swelling Verified 08/10/24 08:07 with earrings lisinopril AdvReac Mild Cough Verified 08/10/24 08:07 Home Medications Medication Instructions Recorded Confirmed Type cholecalciferol (vitamin D3) 25 2,000 unit PO QAM 12/28/22 08/18/24 History mcg (1,000 unit) capsule fluoride (sodium) 1.1 % dental 1 applic dental HS 05/12/23 08/18/24 History paste (PreviDent 5000 Dry Mouth) amlodipine 5 mg tablet 5 mg PO QAM 07/23/24 08/18/24 History atorvastatin 20 mg tablet 20 mg PO HS 07/23/24 08/18/24 History citalopram 10 mg tablet 10 mg PO HS 07/23/24 08/18/24 History efinaconazole 10 % topical 1 applic topical HS 07/23/24 08/18/24 History solution with applicator (Jublia) hydrochlorothiazide 12.5 mg tablet 12.5 mg PO QAM 07/23/24 08/18/24 History omeprazole 20 mg capsule,delayed 20 mg PO QAM 07/23/24 08/18/24 History release telmisartan 40 mg tablet 40 mg PO HS 07/23/24 08/18/24 History Patient History Medical History Chronic hyponatremia Prediabetes Osteoarthritis Degenerative disc disease Acid reflux controlled, stable per pt History of right breast cancer diagnosed 2014--lumpectomy/radiation-denies limb restriction Depression Hypertension controlled, stable per pt Hyperlipidemia Mixed conductive and sensorineural hearing loss of left ear with restricted hearing of right ear History of bacteremia (~04/2023) hx 04/2023--resolved Surgical History History of bilateral tubal ligation History of colonoscopy History of wisdom tooth extraction History of placement of ear tubes History of bilateral cataract extraction H/O lumpectomy 2014--right breast History of carpal tunnel surgery right wrist Family History Mother Breast cancer Sister Breast cancer Son Myocardial infarction Son Valvular heart disease mitral valve surgery Other No family history of adverse response to anesthesia Denies family history of Ovarian cancer Prostate cancer Lung cancer Colorectal cancer Stroke Social History Smoking Status: Never smoker Second Hand Exposure: No; Do You Dip or Chew Tobacco: No; Hx Alcohol Use: Yes Alcohol type: wine Alcohol Intake Frequency: Monthly or Less Hx Substance Use: No Preferred Language: Italian Communication Ability: Effective Visual Impairment: No Limitations Hearing Ability: Normal Television Parts Tester Required: No Beliefs That Will Affect Care: None marital status: / Current Living Situation: Alone current occupational status: retired Feels Safe at Home: Yes Diet: regular Assistive Devices: Cane, Glasses and Hearing Aid - Bilateral Review of Systems Review of Systems: All systems reviewed & are unremarkable except as noted in HPI & below Physical Exam Physical Exam: General: Well-developed, well-nourished, elderly female, in no acute distress. Laying in bed. Alert and oriented. Conversive. Skin: Warm and dry with good turgor. No rashes. No ecchymosis or erythema. No edema at her right hip. Heart: Heart RRR. No MGR. Peripheral pulses are 2+. Lungs: Lungs are clear to auscultation. No crackles rhonchi or wheezing. Good air movement. The patient is able to take a deep breath. Musculoskeletal: Right hip evaluation reveals a shortened and externally rotated right leg. She has focal discomfort with palpation over the anterior flexion crease extending laterally to the greater trochanter. There is significant increase in discomfort of the hip with any attempted motion. Both active and passive motion are significantly limited secondary to pain. She has intact motor function of her ankle and toes. Strength is 5/5 for resisted plantarflexion and dorsiflexion of the ankle. Neurologic: Gross sensation is intact across the right leg by soft touch. Peripheral pulses are 2+. Results & Data Vital Signs (Past 12 Hours) Vital Signs Temp Pulse Pulse Resp BP BP Pulse Ox 08/18/24 21:25 08/18/24 21:25 94 H 18 156/109 H 93 08/18/24 20:22 112 H 08/18/24 18:33 96 H 15 94 08/18/24 18:23 94 H 18 142/89 H 96 08/18/24 18:21 114 H 17 95 08/18/24 18:18 90 18 95 08/18/24 17:57 95 H 16 93 08/18/24 17:30 83 19 95 08/18/24 17:20 109 H 18 142/89 H 96 08/18/24 17:12 98 H 22 94 08/18/24 17:09 90 18 97 08/18/24 16:54 74 21 99 08/18/24 16:48 75 21 99 08/18/24 16:33 73 18 99 08/18/24 16:27 72 08/18/24 16:20 16 08/18/24 16:04 36.6 C 76 16 142/89 H 98 Pulse Ox O2 Del Method O2 Del Method 08/18/24 21:25 93 Room Air 08/18/24 21:25 Room Air 08/18/24 20:22 08/18/24 18:33 08/18/24 18:23 08/18/24 18:21 08/18/24 18:18 08/18/24 17:57 08/18/24 17:30 08/18/24 17:20 08/18/24 17:12 08/18/24 17:09 08/18/24 16:54 08/18/24 16:48 08/18/24 16:33 08/18/24 16:27 08/18/24 16:20 08/18/24 16:04 Laboratory Results CBC obtained today is entirely unremarkable. PT of 10.8 and INR 1.0. Sodium is 132. Diagnostic Findings Radiographic imaging obtained today of the hip along with CT scan imaging of the right hip shows a subcapital hip fracture.
[2024-08-18] MEDS: CITALOPRAM 20 MG TAB PO SCH (21:54)
[2024-08-18] MEDS: LOSARTAN POTASSIUM 50 MG TAB PO SCH (21:54)
[2024-08-18] MEDS: ATORVASTATIN 20 MG TAB PO SCH (21:54)
[2024-08-18] MEDS: MoRPHine SULFATE 2 MG/ML CARP IV PRN (21:55)
[2024-08-18] MEDS: ONDANSETRON INJ 2 MG/ML 2 ML VIAL IV PRN (21:55)
[2024-08-19] MEDS: HYDROmorphone INJ 1 MG/ML SYRINGE IV STA (00:19)
[2024-08-19 03:57] LABS: Basophils # (auto) 0.02 K/uL (0.00-0.20); Basophils % (auto) 0.2 %; Eosinophils # (auto) 0.03 K/uL (0.00-0.50); Eosinophils % (auto) 0.4 %; Hematocrit (blood only) 35.1 % (37.0-47.0); Hemoglobin 11.9 g/dl (12.0-16.0); Immature Granulocytes # (auto) 0.03 K/uL (0.01-0.20); Immature Granulocytes % (auto) 0.4 %; Lymphocytes # (auto) 0.93 K/uL (1.20-3.40); Lymphocytes % (auto) 11.1 %; Mean Corpuscular Hemoglobin 30.5 pg (25.0-34.0); Mean Corpuscular Hgb Conc 33.9 g/dL (32.0-36.0); Mean Platelet Volume 9.6 fL (9.4-12.4); Monocytes # (auto) 0.57 K/uL (0.11-0.59); Monocytes % (auto) 6.8 %; Neutrophils % (auto) 81.1 %; Platelet Count 203 K/uL (130-400); RDW Standard Deviation 42.7 fL (36.4-46.3); White Blood Count 8.38 K/ul (4.8-10.8)
[2024-08-19 04:13] LABS: Albumin Globulin Ratio 1.7 (0.9-2); Albumin Level 3.6 gm/dl (3.4-5.0); BUN Creatinine Ratio 27.6 (10-20); Bilirubin,Total 0.9 mg/dl (0.2-1.0); Calcium 8.6 mg/dl (8.6-10.3); Creatinine Clr Calc Pharmacy 55.3 ml/min; Globulin 2.1 gm/dl (2.5-4.0); Magnesium 1.8 mg/dl (1.7-2.4); Potassium 3.7 mmol/L (3.5-5.1); Total Protein 5.7 gm/dl (6.0-8.3)
[2024-08-19 04:27] LABS: Thyroid Stimulating Hormone 1.812 uIu/ml (0.300-4.500)
--- NOTE | 2024-08-19 05:05 | XRay Report ---
EXAM: XR chest 1V portable CLINICAL HISTORY: FALL. TECHNIQUE: An X-ray image of the chest is obtained in AP projection. COMPARISON: No prior studies are available for comparison. FINDINGS: Pulmonary Parenchyma: Lungs show accentuated bronchovascular markings. No evidence of consolidation, collapse, or focal opacities. No pulmonary nodules are identified. No evidence of pleural effusion or pleural thickening. Heart and Mediastinum: Heart size and shape are normal. No mediastinal widening or masses. No hilar or mediastinal lymphadenopathy. Bony Thorax: The bony thorax appears intact without fractures or deformities. Soft Tissues: Soft tissues overlying the chest wall are unremarkable. IMPRESSION: 1. Bilateral accentuated bronchovascular markings could be due to congestion. 2. No acute cardiopulmonary abnormalities are identified. 3. No definite fractures. Electronically signed by Vignesh Casiano 08-19-2024 05:05 AM
[2024-08-19] MEDS ORDERED: DEXAMETHASONE SOD INJ 4 MG/ML VIAL ONE (07:17)
[2024-08-19] MEDS ORDERED: PROPOFOL IV EMULSION 10 MG/ML 20 ML VIAL IV ONE (07:18)
[2024-08-19] MEDS ORDERED: LIDOCAINE 2% 2 ML VIAL/AMP(20MG/ML) INFIL ONE (07:18)
[2024-08-19] MEDS ORDERED: fentaNYL citrate PF 100 MCG/2 ML VIAL ONE ×2 (07:18→08:35)
[2024-08-19] MEDS ORDERED: ONDANSETRON INJ 2 MG/ML 2 ML VIAL ONE (07:18)
[2024-08-19] MEDS ORDERED: ROCURONIUM BROMIDE 10 MG/ML 5 ML VIAL IV ONE (07:18)
--- NOTE | 2024-08-19 07:51 | Anesthesiology Consultation ---
Date of Service August 19, 2024 Assessment & Plan ASA ASA3 Proposed Anesthesia Anesthesia Type: General Risk / Benefits Reviewed With: PT / POA / Parent / Guardian, Accepts Plan and Informed Consent Obtained History Surgery Operation Date: 08/18/24 08:30 Proposed Procedures p Bipolar Hip Prosthesis - Eusebio Bennett MD Operation Date: 08/19/24 07:30 Proposed Procedures p Total Hip Arthroplasty Cemented(Right) - Eusebio Bennett MD Height/Weight Height: 5 ft 3 in Weight: 72.575 kg Allergies Allergy/AdvReac Type Severity Reaction Status Date / Time Sulfa (Sulfonamide Allergy Severe whole Verified 08/10/24 08:07 Antibiotics) face, legs, arms swelling nickel Allergy Mild soreness/swelling Verified 08/10/24 08:07 with earrings lisinopril AdvReac Mild Cough Verified 08/10/24 08:07 Medications Home Medications Medication Instructions Recorded Confirmed Last Taken cholecalciferol (vitamin D3) 25 2,000 unit PO QAM 12/28/22 08/18/24 08/17/24 mcg (1,000 unit) capsule fluoride (sodium) 1.1 % dental 1 applic dental 05/12/23 08/18/24 08/17/24 paste (PreviDent 5000 Dry Mouth) amlodipine 5 mg tablet 5 mg PO QA 07/23/24 08/18/24 08/17/24 atorvastatin 20 mg tablet 20 mg PO 07/23/24 08/18/24 08/17/24 citalopram 10 mg tablet 10 mg PO 07/23/24 08/18/24 08/17/24 efinaconazole 10 % topical 1 applic topical 07/23/24 08/18/24 08/17/24 solution with applicator (Jublia) hydrochlorothiazide 12.5 mg tablet 12.5 mg PO QA 07/23/24 08/18/24 08/17/24 omeprazole 20 mg capsule,delayed 20 mg PO [facility] 07/23/24 08/18/24 08/17/24 release telmisartan 40 mg tablet 40 mg PO 07/23/24 08/18/24 08/17/24 Active Medications Generic Name Dose Route Start Last Admin Trade Name Freq PRN Reason Stop Dose Admin Atorvastatin Calcium 20 mg 08/18/24 21:00 08/18/24 21:54 Atorvastatin 20 Mg Tab PO 09/17/24 20:59 20 mg HS SALLY Administration Citalopram Hydrobromide 10 mg 08/18/24 21:30 08/18/24 21:54 Citalopram 20 Mg Tab PO 09/17/24 21:29 10 mg HS SALLY Administration Sodium Chloride 1,000 mls @ 125 mls/hr 08/18/24 17:00 08/19/24 06:30 Nss IV 08/19/24 16:59 125 mls/hr .Q8H SALLY Administration Losartan Potassium 50 mg 08/18/24 21:30 08/18/24 21:54 Losartan Potassium 50 Mg Tab PO 09/17/24 21:29 50 mg HS SALLY Administration Miscellaneous 1 each 08/19/24 00:00 08/19/24 07:35 Jublia Topical~Order Awaiting Action N/A 09/18/24 00:00 Not Given QS SALLY Morphine Sulfate 2 mg 08/18/24 20:13 08/19/24 06:19 Morphine Sulfate 2 Mg/Ml Carp IV 09/01/24 20:12 2 mg Q6 PRN Administration Moderate Pain (Scale 4, 5, 6) Ondansetron HCl 4 mg 08/18/24 20:13 08/18/24 21:55 Ondansetron Inj 2 Mg/Ml 2 Ml Vial IV 09/17/24 20:12 4 mg Q6H PRN Administration Nausea Past Medical History Medical History Chronic hyponatremia Prediabetes Osteoarthritis Degenerative disc disease Acid reflux controlled, stable per pt History of right breast cancer diagnosed 2014--lumpectomy/radiation-denies limb restriction Depression Hypertension controlled, stable per pt Hyperlipidemia Mixed conductive and sensorineural hearing loss of left ear with restricted hearing of right ear History of bacteremia (~04/2023) hx 04/2023--resolved Exercise / Class Metabolic Activity II 4-5 Yardwork/Stairs/Walk up hill Past Family History Family History Mother Breast cancer Sister Breast cancer Son Myocardial infarction Son Valvular heart disease mitral valve surgery Other No family history of adverse response to anesthesia Denies family history of Ovarian cancer Prostate cancer Lung cancer Colorectal cancer Stroke Past Surgical History Surgical History History of bilateral tubal ligation History of colonoscopy History of wisdom tooth extraction History of placement of ear tubes History of bilateral cataract extraction H/O lumpectomy 2015--right breast History of carpal tunnel surgery right wrist Past Anesthesia History No Hx of Anesthesia Complications and No Family Hx of Anesthesia Complications History of PONV No Hx of PONV and No Hx of Motion Sickness Social History Smoking Status: Never smoker Do You Dip or Chew Tobacco: No Hx Alcohol Use: Yes Alcohol type: wine alcohol intake frequency: holidays/special occasions only Hx Substance Use: No substance use type: does not use Review of Systems denies fever/cough/ colds/ chest pain/ SOB/ TONY denies TONY Physical Exam Vital Signs Last Vital Signs Temp 36.8 C 08/19/24 06:38 Pulse 86 08/19/24 06:38 Resp 16 08/19/24 06:38 BP 124/74 08/19/24 06:38 Pulse Ox 92 08/19/24 06:38 O2 Del Method Room Air 08/19/24 06:38 O2 Flow Rate 3 08/19/24 03:00 ENMT Mouth: no TMJ abnormality and no dentition abnormality Thyromental Distance: > or= 3.5 Finger Breadths Mallampati Class: III Neck neck extension not limited Respiratory normal respiratory effort; no respiratory distress Auscultation: lungs clear to auscultation bilaterally Cardiovascular Rate/Rhythm: regular rate and regular rhythm Neurologic moves all extremities Psychiatric Orientation: alert and oriented x 3 Testing Laboratory Results 08/19/24 03:31 08/19/24 03:31 PT 11.0 Seconds (9.0-12.0) 08/19/24 03:31 INR 1.0 (0.9-1.1) 08/19/24 03:31
--- NOTE | 2024-08-19 07:52 | History & Physical Bridge Note ---
Date of Service August 19, 2024 History & Physical Bridge Note I have examined the patient, reviewed the History & Physical and in the interval since the performance of the History & Physical I have noted the following changes of clinical significance: no changes noted
[2024-08-19] MEDS ORDERED: TRANEXAMIC ACID / 0.7% NACL 1000MG/100ML BAG IV ONE (07:58)
[2024-08-19] MEDS: TRANEXAMIC ACID / 0.7% NACL 1,000 MG/100 ML BAG IV ONE ×2 (08:15→17:01)
[2024-08-19] MEDS: ceFAZolin 2000MG 2,000 MG/15 ML SYR IV ONE (08:25)
[2024-08-19] MEDS ORDERED: ceFAZolin 330 MG/ML 1 GM VIAL ONE (08:27)
--- NOTE | 2024-08-19 08:31 | Hospitalist Progress Note ---
Date of Service August 19, 2024 Assessment & Plan (1) Closed right hip fracture: (2) Primary hypertension: (3) Hyperlipidemia: (4) Depression: Plan Assessment:84 F with history of HTN with mechanical fall and right femoral neck fracture, #Status post mechanical fall with sustained acute right hip fracture. Hemiarthroplasty 08/19/24 Dr Bennett # Chronic stable hypertension. Typically on amlodipine and losartan hydrochlorothiazide we will hold losartan hydrochlorothiazide post op Consider restarting when blood pressure rebound #Dyslipidemia. Typically on atorvastatin #History of breast carcinoma very remotely status post lumpectomy and radiation years ago. Lung mass undetermined etiology. She is due for an outpatient PET scan on Tuesday of this coming week. She follows with pulmonology. This PET scan may need to be rescheduled pending discharge from hospital. #depression continue celexa DVT prevention will be per orthopedic choice- apixaban 2.5 twice daily PT OT to direct disposition Admission and Anticipated Discharge Date Admission Date: August 18, 2024 Subjective Patient seen in recovery she is doing well awake alert appropriate pain is controlled No complaints of chest pain or shortness of breath Physical Exam Physical Exam: He is awake appropriate Card exam is regular lungs are clear Good distal sensation and capillary refill the left leg Patient has a wedge in place between her leg Results & Data Results & Data Vital Signs (Past 12 Hours) Vital Signs Temp Pulse Pulse Resp BP BP Pulse Ox 08/19/24 06:38 98.2 F 86 16 124/74 92 08/19/24 03:00 88 14 122/64 96 08/19/24 02:00 138/77 08/19/24 01:01 93 08/19/24 01:00 88 21 95 08/19/24 00:30 85 18 119/78 94 08/19/24 00:06 95 H 21 90 08/18/24 23:42 94 H 27 H 124/97 91 08/18/24 23:36 89 16 91 08/18/24 23:09 85 18 92 08/18/24 22:55 96 H 08/18/24 21:59 100 H 22 158/92 H 93 08/18/24 21:25 08/18/24 21:25 94 H 18 156/109 H 93 Pulse Ox O2 Del Method O2 Del Method O2 Flow Rate 08/19/24 06:38 Room Air 08/19/24 03:00 Nasal Cannula 3 08/19/24 02:00 08/19/24 01:01 Nasal Cannula 2 08/19/24 01:00 Room Air 08/19/24 00:30 Room Air 08/19/24 00:06 Room Air 08/18/24 23:42 Room Air 08/18/24 23:36 Room Air 08/18/24 23:09 Room Air 08/18/24 22:55 08/18/24 21:59 Room Air 08/18/24 21:25 93 Room Air 08/18/24 21:25 Room Air Laboratory Results Reviewed CBC reviewed chemistry PG Care Time/CCT Total # of Minutes Spent Total Time Spent with Patient: Total time spent is greater than 50% in coordination of care (as documented) at patient's floor/unit and/or counseling patient: Coding Level of Care Code 12923 SUB INP/OBS CARE 3/50MIN Diagnoses Closed right hip fracture S72.001A Primary hypertension I10 Hyperlipidemia E78.5 Depression F32.A
[2024-08-19] MEDS: PANTOprazole 40 MG TAB PO SCH (08:36)
[2024-08-19] MEDS: amLODIPine BESYLATE 5 MG TAB PO SCH (08:36)
[2024-08-19] MEDS ORDERED: hydroCHLOROthiazide 25 MG TAB PO SCH (09:00)
[2024-08-19] MEDS ORDERED: METOPROLOL TARTRATE 1 MG/ML VIAL IV ONE (09:20)
[2024-08-19] MEDS: THROMBIN FOR SOLN 20000 UNIT KIT ONE (09:48)
[2024-08-19] MEDS: VANCOMYCIN HCL 1000MG/20ML VIAL ONE (09:48)
[2024-08-19] MEDS: THROMBIN 5000 UNITS KIT ONE (09:49)
[2024-08-19] MEDS ORDERED: SUGAMMADEX SODIUM 200 MG/2 ML VIAL IV ONE (10:29)
[2024-08-19] MEDS: LIDOCAINE 1% LOCAL 20 ML VIAL ONE (11:12)
[2024-08-19] MEDS: BUPIVACAINE 0.5 % 5 MG/1 ML MPF 30ML VIAL ONE (11:12)
--- NOTE | 2024-08-19 11:22 | Operative Report ---
Post Operative Report Pre & Post Diagnosis Operation Date: 08/19/24 07:30 Pre-Op Diagnosis: Closed right hip fracture Post-Op Diagnosis: Closed right hip fracture, Right abductor tear I identified the patient and participated in the time-out.: Yes Procedure Operation Date: 08/19/24 07:30 Actual Procedures p Right hip cemented hemiarthroplasty; right abductor repair(Right) - Eusebio Bennett MD Surgeon Eusebio Bennett MD Load Dispatcher Local Silviano Gonsales cement tester assistant no resident or fellow available Estimated Blood Loss 100 Findings Consistent with Post-Op Diagnosis Specimens Resected femoral head Anesthesia Type General Regional Complications none Disposition Accompanied Patient To Recovery: No Disposition: Recovery Room Indications Lesly is 84 years old. She fell yesterday injuring her right hip. Radiograph shows she has a displaced right femoral neck fracture. She is taken to the OR for partial hip replacement. Description of Procedure Informed consent. Patient identified. She identified the procedure site as the right hip. I marked with my initials. A preop dose of IV antibiotics and TXA were given. She was taken to the operating room where the anesthetic was administered. She was then positioned decubitus with the right side up. Down leg padded. Axillary roll inserted. Stolberg positioner utilized. The hip was scrubbed and then prepped and draped in usual sterile fashion. DVT prophylaxis intraoperatively with SCDs. Postop early mobility mechanical devices and Eliquis. Surgical timeout performed. The hip was unremarkable. Posterior approach to the hip was made using approximately 15 cm incision. Electrocautery was utilized down to subcutaneous tissue. There was initially a fair amount of bleeding throughout the surgical procedure requiring time for electrocauterization of small arteries and oozing. This occurred up until the hip joint capsule was exposed. The IT band was split in line with the shaft of the femur and the gluteal fascia was split. Charnley retractor inserted. Patient was noted at this point to have partial tear of the hip abductors. The posterior portion was intact. There was a split and retracted tear anteriorly. This was about 1 to and 1/2 to 2 cm wide. It left exposed the lateral and anterior surface of the greater trochanter. Vastus lateralis intact. Trochanteric bursitis was significant and debrided. At the conclusion of the procedure the hip abductor was mobilized on both the surfaces. A 2.9 juggernaut anchor was inserted anterior superior on the trochanter at a fairly shallow angle and aiming posterior and distal. The surface of the trochanter was excoriated with a rongeur and curette. The hip abductor tissue was repaired back to the anterosuperior portion of the greater trochanter using the #2 max braid sutures from the juggernaut anchor. This was done in a horizontal mattress and ripstop type fashion. The tissue quality of the hip abductor was poor. The stitches were also used to repair the [id number] split. The posterior hip abductor remained intact although it was partially thinned and not apparently repairable. Retractor was inserted under the gluteus minimus which was elevated off the joint capsule. The short external rotators were released from the proximal femur beginning at the piriformis and extending distally to the quadratus femoris. These were tagged for later repair and dissected off of the posterior joint capsule. A posterior joint capsulotomy was performed. It was released inferiorly and superiorly and tagged for later repair. The hip fracture was then noted and the hip was dislocated with the head coming with it. The head measured 48 mm in diameter. Trialing confirmed good fit and fill. The acetabulum was unremarkable except for a minor degenerative labral fraying which was debrided. The ligamentum teres was resected. The leg was taken to the 9090 position. The lesser trochanter was exposed. So ft tissue on the lateral base of the neck was excised. A new neck cut was made just under a fingerbreadth above the lesser trochanter using the provided guide. Next was the box osteotome followed by the canal finder and the lateralizing reamer. Broaching began at the smallest size, 7 and proceeded up to a size 11 which had good fit fill and stability. The calcar was planed. Trialing was performed with the 0 neck length which showed lengthening of the leg about 1 to 1-1/2 cm compared to the preoperative condition. Negative shock in full extension and mid position. The hip was stable to internal rotation both at neutral and abduction when the hip was at 90 degrees. Very stable. The hip was then dislocated and the trial components were removed. Cement restrictor applied at the appropriate depth. The canal was prepared with pulse lavage and drying thrombin and further drying. 2 bags of Simplex P cement were mixed with 1 g of vancomycin powder. In the liquid/doughy state retrograde fill was performed followed by pressurization. The size 9 implant was then inserted lateral and in approximately 30 degrees of anteversion corresponding to the broaching. Implant was held until the cemented hardened. Extraneous cement was removed. Trialing was again performed and a 0 neck length gave excellent stability with negative shuck test. The trunnion was cleaned and the final implants were applied and the hip was reduced. The hip abductor was repaired. The short external rotators and joint capsule were repaired back to the greater trochanter using #1 Ethibond with sutures passed through the greater trochanter or hip abductor tendon as was appropriate. Half of a gram of vancomycin was placed deep at the level of the implant. Another half gram was applied in the subcuta neous tissues. The gluteal fascia was closed using running #1 Vicryl. The IT band was closed using interrupted #1 Vicryl. The skin was closed in layers with 0 and 2-0 Vicryl followed by tyler on the skin A 50-50 mixture 1% lidocaine and half percent Marcaine 20 cc of each was partially injected into the skin and subcutaneous tissues. A soft roll dressing was applied Xeroform 4 x 4's ABD. Hip abduction pillow. Patient was then returned to the supine position transferred to the hospital bed and taken to recovery in stable condition. The resected femoral head was sent for specimen. Counts were correct and blood loss is estimated to be 100 cc. Bleeding was controlled with electrocautery. Copious irrigation was performed throughout surgical procedure and the soft tissues were kept moist. At the conclusion the operation spoke to patient's family informed of my findings and discussed the postoperative plan. She may weight-bear as tolerated with PT and OT. Total hip precautions. She may need intermediate facility or acute care rehab as she lives alone. Will check a postop x-ray. Eliquis will begin in the morning. The components inserted were the Lou Biomet echo size 9 standard stem with a 9 mm symmetrical Eiser 48 mm shell with a +0 28 mm head I attest to the content of the Intraoperative Record and any orders documented therein. Any exceptions are noted below.
--- NOTE | 2024-08-19 11:57 | Anesthesiology Progress Note ---
Date of Service August 19, 2024 Anesthesia Post Procedure Vital Signs Vital Signs: Temp Pulse Pulse Resp BP BP Pulse Ox 08/19/24 11:40 19 L 16 103/51 L 98 08/19/24 11:32 36 C L 79 16 105/53 L 98 08/19/24 06:38 36.8 C 86 16 124/74 92 08/19/24 03:00 88 14 122/64 96 08/19/24 02:00 138/77 08/19/24 01:01 93 08/19/24 01:00 88 21 95 08/19/24 00:30 85 18 119/78 94 08/19/24 00:06 95 H 21 90 08/18/24 23:42 94 H 27 H 124/97 91 08/18/24 23:36 89 16 91 08/18/24 23:09 85 18 92 08/18/24 22:55 96 H 08/18/24 21:59 100 H 22 158/92 H 93 08/18/24 21:25 08/18/24 21:25 94 H 18 156/109 H 93 08/18/24 20:22 112 H 08/18/24 18:33 96 H 15 94 08/18/24 18:23 94 H 18 142/89 H 96 08/18/24 18:21 114 H 17 95 08/18/24 18:18 90 18 95 08/18/24 17:57 95 H 16 93 08/18/24 17:30 83 19 95 08/18/24 17:20 109 H 18 142/89 H 96 08/18/24 17:12 98 H 22 94 08/18/24 17:09 90 18 97 08/18/24 16:54 74 21 99 08/18/24 16:48 75 21 99 08/18/24 16:33 73 18 99 08/18/24 16:27 72 08/18/24 16:20 16 08/18/24 16:04 36.6 C 76 16 142/89 H 98 Pulse Ox O2 Del Method O2 Del Method O2 Flow Rate 08/19/24 11:40 Oxymask 4 08/19/24 11:32 Oxymask 6 08/19/24 06:38 Room Air 08/19/24 03:00 Nasal Cannula 3 08/19/24 02:00 08/19/24 01:01 Nasal Cannula 2 08/19/24 01:00 Room Air 08/19/24 00:30 Room Air 08/19/24 00:06 Room Air 08/18/24 23:42 Room Air 08/18/24 23:36 Room Air 08/18/24 23:09 Room Air 08/18/24 22:55 08/18/24 21:59 Room Air 08/18/24 21:25 93 Room Air 08/18/24 21:25 Room Air 08/18/24 20:22 08/18/24 18:33 08/18/24 18:23 08/18/24 18:21 08/18/24 18:18 08/18/24 17:57 08/18/24 17:30 08/18/24 17:20 08/18/24 17:12 08/18/24 17:09 08/18/24 16:54 08/18/24 16:48 08/18/24 16:33 08/18/24 16:27 08/18/24 16:20 08/18/24 16:04 Pain Intensity Right Hip: Pain Intensity: 7 Transfer of Care Handoff Completed per policy Notes Mental Status: alert / awake / arousable and participated in evaluation Patient Amnestic to Procedure: Yes Nausea / Vomiting: adequately controlled Pain: adequately controlled Airway Patency, RR, SpO2: stable & adequate BP & HR: stable & adequate Hydration State: stable & adequate Anesthetic Complications: no major complications apparent and Pt Satisfied with anesthetic care
--- NOTE | 2024-08-19 12:58 | XRay Report ---
XR hip RT 2V w pelvis CLINICAL HISTORY: post op R hip hemiarthroplasty COMPARISON: Right hip radiographs and CT of the right hip August 18, 2024. FINDINGS: Right hip arthroplasty is intact. Alignment is anatomic. There is no periprosthetic fractu re. No unexpected radiopaque foreign bodies are present. There are skin tyler. IMPRESSION: Expected findings following right hip arthroplasty. ACT 112: Negative or not required by law. Electronically signed by: Oneal Chairez M.D. 08/19/2024 12:56 PM
--- NOTE | 2024-08-19 13:05 | Orthopedic Progress Note ---
Date of Service August 19, 2024 Assessment & Plan (1) Closed right hip fracture: Plan: Radiographs show good cement technique. No complication. Perhaps trace short on the leg length. No complication noted. Stable postop. Spoke with [id number]. Hip precautions. Routine postoperative care. Admission and Anticipated Discharge Date Admission Date: August 18, 2024 Subjective Seen postop. Awake and alert. Moving all extremities. Physical Exam Physical Exam: Dressing clean and dry. Thigh soft. 5 out of 5 ankle and toe plantarflexion dorsiflexion eversion strength. DP and PT pulses 1+ with intact sensation. Right leg Results & Data Vital Signs (Past 12 Hours) Vital Signs Temp Pulse Pulse Resp BP BP Pulse Ox 08/19/24 12:58 08/19/24 12:48 36.5 C 75 103/62 93 08/19/24 12:20 36.4 C L 67 22 112/52 L 94 08/19/24 12:00 77 18 111/48 L 96 08/19/24 11:50 77 14 107/56 L 95 08/19/24 11:40 78 19 103/51 L 98 08/19/24 11:32 36 C L 79 16 105/53 L 98 08/19/24 06:38 36.8 C 86 16 124/74 92 08/19/24 03:00 88 14 122/64 96 08/19/24 02:00 138/77 O2 Del Method O2 Flow Rate 08/19/24 12:58 Nasal Cannula 2 08/19/24 12:48 Nasal Cannula 2 08/19/24 12:20 Nasal Cannula 2 08/19/24 12:00 Nasal Cannula 2 08/19/24 11:50 Oxymask 2 08/19/24 11:40 Oxymask 4 08/19/24 11:32 Oxymask 6 08/19/24 06:38 Room Air 08/19/24 03:00 Nasal Cannula 3 08/19/24 02:00 Laboratory Results 08/19/24 08/19/24 08/18/24 Range/Units 08:20 03:31 17:00 WBC 8.38 8.82 (4.8-10.8) K/ul RBC 3.90 L 4.23 (4.20-5.40) M/uL Hgb 11.9 L 12.8 (12.0-16.0) g/dl Hct 35.1 L 37.8 (37.0-47.0) % MCV 90.0 89.4 (80.0-100.0) fL MCH 30.5 30.3 (25.0-34.0) pg MCHC 33.9 33.9 (32.0-36.0) g/dL RDW Std Deviation 42.7 42.4 (36.4-46.3) fL RDW Coeff of Gladys 13.0 13.0 (11.5-14.5) % Plt Count 203 212 (130-400) K/uL MPV 9.6 10.4 (9.4-12.4) fL Immature Gran % (Auto) 0.4 0.7 % Neut % (Auto) 81.1 79.7 % Lymph % (Auto) 11.1 12.8 % [place] % (Auto) 6.8 6.2 % Eos % (Auto) 0.4 0.3 % Baso % (Auto) 0.2 0.3 % Neut # (Auto) 6.80 H 7.02 H (1.40-6.50) K/uL Lymph # (Auto) 0.93 L 1.13 L (1.20-3.40) K/uL [place] # (Auto) 0.57 0.55 (0.11-0.59) K/uL Eos # (Auto) 0.03 0.03 (0.00-0.50) K/uL Baso # (Auto) 0.02 0.03 (0.00-0.20) K/uL Immature Gran # (Auto) 0.03 0.06 (0.01-0.20) K/uL PT 11.0 10.8 (9.0-12.0) Seconds INR 1.0 1.0 (0.9-1.1) Sodium 134 L 132 L (136-145) mmol/L Potassium 3.7 3.6 (3.5-5.1) mmol/L Chloride 101 97 L (98-107) mmol/L Carbon Dioxide 27 29 (21-32) mmol/L Anion Gap 6 6 (3-11) BUN 21 23 (6-23) mg/dl Creatinine 0.76 0.88 (0.6-1.2) mg/dl Est Cr Clr Drug Dosing 55.3 47.7 ml/min eGFR 78.19 65.57 BUN/Creatinine Ratio 27.6 H 26.1 H (10-20) Glucose 133 H 102 H (70-99(Fasting)) mg/dl Calcium 8.6 9.3 (8.6-10.3) mg/dl Magnesium 1.8 1.9 (1.7-2.4) mg/dl Total Bilirubin 0.9 0.7 (0.2-1.0) mg/dl AST 20 23 (13-39) U/L ALT 15 17 (7-52) U/L Alkaline Phosphatase 65 76 (34-104) U/L Total Protein 5.7 L 6.4 (6.0-8.3) gm/dl Albumin 3.6 4.0 (3.4-5.0) gm/dl Globulin 2.1 L 2.4 L (2.5-4.0) gm/dl Albumin/Globulin Ratio 1.7 1.7 (0.9-2) Triglycerides 49 (0-150) mg/dl Cholesterol 157 (0-200) mg/dl LDL Cholesterol, Calc 68 mg/dl VLDL Cholesterol, Calc 10 (0-30) mg/dl HDL Cholesterol 79 mg/dl Cholesterol/HDL Ratio 2.0 (0-5) Lipase 47 (11-82) U/L TSH 1.812 (0.300-4.500) uIu/ml Blood Type B Negative Antibody Screen NEGATIVE
--- NOTE | 2024-08-19 13:07 | Operative Report ---
Post Operative Report Pre & Post Diagnosis Operation Date: 08/19/24 07:30 Pre-Op Diagnosis: Closed right hip fracture Post-Op Diagnosis: Closed right hip fracture, Right abductor tear I identified the patient and participated in the time-out.: Yes Procedure Operation Date: 08/19/24 07:30 Actual Procedures p Right hip cemented hemiarthroplasty; right abductor repair(Right) - Eusebio Bennett MD Surgeon Nurys Bennett MD Tooling Specialist Silviano Harvey Physician city carrier assistant no resident or fellow available Estimated Blood Loss 100 Findings Consistent with Post-Op Diagnosis See operative report Specimens See operative report Drains None Complications none Disposition Accompanied Patient To Recovery: Yes Indications This 84-year-old female presented through the ED after falling at home. She was found to have a femoral neck fracture. She elected to proceed with surgical invention after being educated about potential risks and outcomes. Preoperative imaging was obtained. Description of Procedure The patient was taken to the operating room where she was given general anesthesia. She was prepped and draped in the usual sterile fashion. Please see Dr. Bennett's operative report for specifics of the procedure. I was present for the entire case from initial patient positioning through final wound closure. Assistance was provided in tissue retraction, hemostasis, trial implant placement, final implant placement, and final wound closure. The patient was taken to the recovery room in satisfactory condition. I attest to the content of the Intraoperative Record and any orders documented therein. Any exceptions are noted below.
[2024-08-19] MEDS: ceFAZolin 2000MG 2,000 MG/15 ML SYR IV SCH (16:14)
[2024-08-19] MEDS: oxyCODONE HCL IR 5 MG TAB (IMMEDIATE RELEASE) PO PRN (20:27)
[2024-08-20] MEDS: HYDROmorphone INJ 0.5 MG/0.5 ML SYR IV PRN (00:06)
[2024-08-20 06:42] LABS: Basophils # (auto) 0.02 K/uL (0.00-0.20); Basophils % (auto) 0.2 %; Eosinophils # (auto) 0.01 K/uL (0.00-0.50); Eosinophils % (auto) 0.1 %; Hematocrit (blood only) 25.6 % (37.0-47.0); Hemoglobin 8.7 g/dl (12.0-16.0); Immature Granulocytes # (auto) 0.05 K/uL (0.01-0.20); Immature Granulocytes % (auto) 0.5 %; Lymphocytes # (auto) 1.23 K/uL (1.20-3.40); Lymphocytes % (auto) 12.4 %; Mean Corpuscular Hemoglobin 30.7 pg (25.0-34.0); Mean Corpuscular Volume 90.5 fL (80.0-100.0); Mean Platelet Volume 9.6 fL (9.4-12.4); Monocytes # (auto) 0.93 K/uL (0.11-0.59); Monocytes % (auto) 9.4 %; Neutrophils # (auto) 7.65 K/uL (1.40-6.50); Neutrophils % (auto) 77.4 %; Platelet Count 152 K/uL (130-400); RDW Coefficient of Variation 13.1 % (11.5-14.5); RDW Standard Deviation 43.4 fL (36.4-46.3); Red Blood Count 2.83 M/uL (4.20-5.40); White Blood Count 9.89 K/ul (4.8-10.8)
[2024-08-20 06:43] LABS: Calcium 7.9 mg/dl (8.6-10.3); Creatinine Clr Calc Pharmacy 54.5 ml/min; Potassium 4.3 mmol/L (3.5-5.1)
--- NOTE | 2024-08-20 08:38 | Orthopedic Progress Note ---
Date of Service August 20, 2024 Assessment & Plan (1) Status post hemiarthroplasty of right hip: Plan: Total hip precautions reviewed Weightbearing as tolerated with walker assistance Abduction pillow use x 6 weeks DVT prophylaxis with Eliquis and RUPAL stockings Pain controlled p.o. medication Dressing changed this morning PT/OT Case management eval for placement Will need 2-week follow-up in our clinic With questions contact our clinic at [phone] Admission and Anticipated Discharge Date Admission Date: August 18, 2024 Subjective This 84-year-old female is day 1 status post cemented right hip hemiarthroplasty with Dr. Bennett. Patient states that she is doing very well. She states she still has some difficulty lifting her right leg off of the bed. She states that her pain is well-controlled with the p.o. pain medication she is receiving. She denies any numbness or tingling in the right lower extremity. She states that she lives alone most likely need to go to a rehab facility upon discharge. Currently she denies chest pain, shortness of breath, fever, chills, sweats, nausea, vomiting, diarrhea or difficulty voiding. Review of Systems Review of Systems: All systems reviewed & are unremarkable except as noted in Subjective Physical Exam Physical Exam: Right hip: Outer dressing was removed. Tyler are in place and wound is completely closed with no fluctuance or drainage. A new dressing was applied consisting of Adaptic gauze, sterile nonstick pads and Tegaderms. Patient is able to actively dorsi and plantarflex her foot without issue. Her peripheral pulses are 2+. She does have difficulty performing active straight leg raise test, however when I passively lift her legs she was able to hold it off of the bed. Patient tolerates passive hip flexion to about 65 degrees. She feels a slight pulling sensation with very light passive internal and external hip rotation. Logroll test causes her no discomfort. Patient was neurovascularly intact in the right lower extremity. Quad strength was 3/5. Results & Data Vital Signs (Past 12 Hours) Vital Signs Temp Pulse Pulse Resp BP Pulse Ox Pulse Ox 08/20/24 07:32 37.2 C 86 19 124/70 96 08/20/24 07:26 36.4 C L 93 H 20 130/84 97 08/20/24 02:50 36.8 C 68 19 122/68 97 08/20/24 02:30 84 08/19/24 23:29 36.5 C 90 18 113/69 93 08/19/24 21:00 93 O2 Del Method O2 Del Method O2 Flow Rate 08/20/24 07:32 Nasal Cannula 1.5 08/20/24 07:26 Nasal Cannula 2 08/20/24 02:50 Nasal Cannula 2.0 08/20/24 02:30 08/19/24 23:29 Room Air 08/19/24 21:00 Room Air Diagnostic Findings Laboratory Results WBC 9.89 K/ul (4.8-10.8) 08/20/24 06:05 RBC 2.83 M/uL (4.20-5.40) L 08/20/24 06:05 Hgb 8.7 g/dl (12.0-16.0) L D 08/20/24 06:05 Hct 25.6 % (37.0-47.0) L 08/20/24 06:05 MCV 90.5 fL (80.0-100.0) 08/20/24 06:05 MCH 30.7 pg (25.0-34.0) 08/20/24 06:05 MCHC 34.0 g/dL (32.0-36.0) 08/20/24 06:05 RDW Std Deviation 43.4 fL (36.4-46.3) 08/20/24 06:05 RDW Coeff of Gladys 13.1 % (11.5-14.5) 08/20/24 06:05 Plt Count 152 K/uL (130-400) 08/20/24 06:05 MPV 9.6 fL (9.4-12.4) 08/20/24 06:05 Immature Gran % (Auto) 0.5 % 08/20/24 06:05 Neut % (Auto) 77.4 % 08/20/24 06:05 Lymph % (Auto) 12.4 % 08/20/24 06:05 [place] % (Auto) 9.4 % 08/20/24 06:05 Eos % (Auto) 0.1 % 08/20/24 06:05 Baso % (Auto) 0.2 % 08/20/24 06:05 Neut # (Auto) 7.65 K/uL (1.40-6.50) H 08/20/24 06:05 Lymph # (Auto) 1.23 K/uL (1.20-3.40) 08/20/24 06:05 [place] # (Auto) 0.93 K/uL (0.11-0.59) H 08/20/24 06:05 Eos # (Auto) 0.01 K/uL (0.00-0.50) 08/20/24 06:05 Baso # (Auto) 0.02 K/uL (0.00-0.20) 08/20/24 06:05 Immature Gran # (Auto) 0.05 K/uL (0.01-0.20) 08/20/24 06:05 PT 11.0 Seconds (9.0-12.0) 08/19/24 03:31 INR 1.0 (0.9-1.1) 08/19/24 03:31 Sodium 131 mmol/L (136-145) L 08/20/24 06:05 Potassium 4.3 mmol/L (3.5-5.1) 08/20/24 06:05 Chloride 101 mmol/L (98-107) 08/20/24 06:05 Carbon Dioxide 27 mmol/L (21-32) 08/20/24 06:05 Anion Gap 3 (3-11) 08/20/24 06:05 BUN 19 mg/dl (6-23) 08/20/24 06:05 Creatinine 0.76 mg/dl (0.6-1.2) 08/20/24 06:05 Est Cr Clr Drug Dosing 54.5 ml/min 08/20/24 06:05 eGFR 78.19 08/20/24 06:05 BUN/Creatinine Ratio 25.0 (10-20) H 08/20/24 06:05 Glucose 106 mg/dl (70-99(Fasting)) H 08/20/24 06:05 Calcium 7.9 mg/dl (8.6-10.3) L 08/20/24 06:05 Magnesium 1.8 mg/dl (1.7-2.4) 08/19/24 03:31 Total Bilirubin 0.9 mg/dl (0.2-1.0) 08/19/24 03:31 AST 20 U/L (13-39) 08/19/24 03:31 ALT 15 U/L (7-52) 08/19/24 03:31 Alkaline Phosphatase 65 U/L (34-104) 08/19/24 03:31 Total Protein 5.7 gm/dl (6.0-8.3) L 08/19/24 03:31 Albumin 3.6 gm/dl (3.4-5.0) 08/19/24 03:31 Globulin 2.1 gm/dl (2.5-4.0) L 08/19/24 03:31 Albumin/Globulin Ratio 1.7 (0.9-2) 08/19/24 03:31 Triglycerides 49 mg/dl (0-150) 08/19/24 03:31 Cholesterol 157 mg/dl (0-200) 08/19/24 03:31 LDL Cholesterol, Calc 68 mg/dl 08/19/24 03:31 VLDL Cholesterol, Calc 10 mg/dl (0-30) 08/19/24 03:31 HDL Cholesterol 79 mg/dl 08/19/24 03:31 Cholesterol/HDL Ratio 2.0 (0-5) 08/19/24 03:31 Lipase 47 U/L (11-82) 08/18/24 17:00 25-OH Vitamin D Total 41.5 ng/ml (30-100) 08/20/24 06:05 TSH 1.812 uIu/ml (0.300-4.500) 08/19/24 03:31 Blood Type B Negative 08/19/24 08:20 Antibody Screen NEGATIVE 08/19/24 08:[address] 08/18/24 16:48 CT cervical spine without IV contrast History: Pain Comparison: None Technique: Using multidetector thin collimation helical acquisition technique, axial, coronal and sagittal CT images through the cervical spine were obtained without intravenous contrast. Dose reduction techniques were achieved by using automatic exposure control and/or adjustment of mA and/or kV according to patient size and/or use of iterative reconstruction technique. Findings: The cervical vertebrae are normally aligned. Straightened cervical lordosis. No acute fracture or subluxation. No prevertebral edema. Osteopenia. Severe degenerative disc height loss at C5-6 and C6-7. Moderate multilevel hypertrophic degenerative facet changes, right greater than left. No abnormality of the paraspinous soft tissues. Impression: No acute fracture or traumatic subluxation. Electronically signed by Paul Batres 08-18-2024 6:08 PM Chest X-Ray 08/18/24 16:48 EXAM: XR chest 1V portable CLINICAL HISTORY: FALL. TECHNIQUE: An X-ray image of the chest is obtained in AP projection. COMPARISON: No prior studies are available for comparison. FINDINGS: Pulmonary Parenchyma: Lungs show accentuated bronchovascular markings. No evidence of consolidation, collapse, or focal opacities. No pulmonary nodules are identified. No evidence of pleural effusion or pleural thickening. Heart and Mediastinum: Heart size and shape are normal. No mediastinal widening or masses. No hilar or mediastinal lymphadenopathy. Bony Thorax: The bony thorax appears intact without fractures or deformities. Soft Tissues: Soft tissues overlying the chest wall are unremarkable. IMPRESSION: 1. Bilateral accentuated bronchovascular markings could be due to congestion. 2. No acute cardiopulmonary abnormalities are identified. 3. No definite fractures. Electronically signed by Vignesh Casiano 08-19-2024 05:[address] 08/18/24 16:48 CT head without contrast History: Trauma Comparison: None Technique: Using multidetector thin collimation helical acquisition technique, axial, coronal and sagittal CT images from the skull base to the vertex were obtained without intravenous contrast. Dose reduction techniques were achieved by using automatic exposure control and/or adjustment of mA and/or kV according to patient size and/or use of iterative reconstruction technique. Findings: No intracranial hemorrhage, mass-effect, or midline shift. The ventricles are proportionate to the cerebral sulci. The [place] to white matter differentiation of the cerebral hemispheres is preserved. The basal cisterns are patent. There is moderate cerebral atrophy. Moderate, patchy low-attenuation changes in the white matter, most suggestive of sequelae of chronic small vessel ischemic disease. The visualized paranasal sinuses are clear. Mastoid air cells are clear. Impression: No acute intracranial pathology. Electronically signed by Paul Batres 08-18-2024 6:[address] 08/18/24 17:41 CT extremity, right hip without contrast History: Pain/weakness Comparison: Same-day radiograph Technique: CT performed of the extremity without IV contrast. 3D reconstructions performed. Dose reduction techniques were achieved by using automatic exposure control and/or adjustment of mA and/or kV according to patient size and/or use of iterative reconstruction technique. Findings: The bones are osteopenic. There is a right subcapital femoral neck fracture, with anterior apex angulation and foreshortening. Joint spaces are normally aligned. Degenerative osteophytes of the acetabulum. Enthesophytes of the greater tuberosity of the right femur. No visualized soft tissue abnormality. No aggressive osseous lesion. Impression: There is a right femoral neck fracture Electronically signed by Paul Batres 08-18-2024 6:16 PM Hip/Pelvis X-Ray 08/19/24 11:50 XR hip RT 2V w pelvis CLINICAL HISTORY: post op R hip hemiarthroplasty COMPARISON: Right hip radiographs and CT of the right hip August 18, 2024. FINDINGS: Right hip arthroplasty is intact. Alignment is anatomic. There is no periprosthetic fracture. No unexpected radiopaque foreign bodies are present. There are skin tyler. IMPRESSION: Expected findings following right hip arthroplasty. ACT 112: Negative or not required by law. Electronically signed by: Oneal Chairez M.D. 08/19/2024 12:56 PM
[2024-08-20] MEDS: CHOLECALCIFEROL 125 MCG (5,000 UNITS) TAB PO SCH (08:50)
[2024-08-20] MEDS: APIXABAN 2.5 MG TAB PO SCH (08:50)
--- NOTE | 2024-08-20 16:24 | Electrocardiogram Report ---
Test Reason : Blood Pressure : */* mmHG Vent. Rate : 105 BPM Atrial Rate : 108 BPM P-R Int : * ms QRS Dur : 80 ms QT Int : 370 ms P-R-T Axes : * -54 14 degrees QTcB Int : 489 ms Suspect sinus tachycardia with first degree AV block, cannot exclude another supraventricular rhythm Left axis deviation Low voltage QRS Cannot rule out Anterior infarct (cited on or before 12-May-2023) Abnormal ECG When compared with ECG of 30-Jul-2024 11:59, HR has increased Nonspecific T wave abnormality now evident in Inferior leads Confirmed by Shaun Sam ([id number]) on 08/20/2024 4:24:08 PM Referred By: REFERRED SELF Confirmed By: Shaun Sam
--- NOTE | 2024-08-20 17:27 | Hospitalist Progress Note ---
Date of Service August 20, 2024 Assessment & Plan (1) Closed right hip fracture: (2) Primary hypertension: (3) Hyperlipidemia: (4) Depression: Plan Assessment:84 F with history of HTN with mechanical fall and right femoral neck fracture, #Status post mechanical fall with sustained acute right hip fracture. Hemiarthroplasty 08/19/24 Dr Bennett Now orthostatic, likely rrom acute blood loss anemia. will monitor. # Chronic stable hypertension. Typically on amlodipine and losartan hydrochlorothiazide we will hold losartan hydrochlorothiazide post op Consider restarting when blood pressure rebound #Dyslipidemia. Typically on atorvastatin #History of breast carcinoma very remotely status post lumpectomy and radiation years ago. Lung mass undetermined etiology. She is due for an outpatient PET scan on Tuesday of this coming week. She follows with pulmonology. This PET scan may need to be rescheduled pending discharge from hospital. #depression continue celexa DVT prevention will be per orthopedic choice- apixaban 2.5 twice daily PT OT to direct disposition Admission and Anticipated Discharge Date Admission Date: August 18, 2024 Subjective Patient reports feeling orhostaric. This was confirmed with Physical therapy. Review of Systems Review of Systems: All systems reviewed & are unremarkable except as noted in HPI & below Physical Exam Physical Exam: She is awake appropriate Card exam is regular lungs are clear Good distal sensation and capillary refill the left leg Results & Data Results & Data Vital Signs (Past 12 Hours) Vital Signs Temp Pulse Resp BP Pulse Ox O2 Del Method O2 Flow Rate 08/20/24 15:28 Room Air 08/20/24 15:23 37.1 C 88 19 110/63 94 Nasal Cannula 2 08/20/24 11:12 37.1 C 89 19 117/66 92 Nasal Cannula 08/20/24 07:32 37.2 C 86 19 124/70 96 Nasal Cannula 1.5 08/20/24 07:26 36.4 C L 93 H 20 130/84 97 Nasal Cannula 2 PG Care Time/CCT Total # of Minutes Spent Total Time Spent with Patient: Total time spent is greater than 50% in coordination of care (as documented) at patient's floor/unit and/or counseling patient: Coding Level of Care Code 35615 SUB INP/OBS CARE 2/35MIN Diagnoses Closed right hip fracture S72.001A Primary hypertension I10 Hyperlipidemia E78.5 Depression F32.A
[2024-08-21 06:46] LABS: Basophils # (auto) 0.02 K/uL (0.00-0.20); Basophils % (auto) 0.2 %; Eosinophils # (auto) 0.08 K/uL (0.00-0.50); Eosinophils % (auto) 0.9 %; Hematocrit (blood only) 24.7 % (37.0-47.0); Hemoglobin 8.3 g/dl (12.0-16.0); Immature Granulocytes # (auto) 0.04 K/uL (0.01-0.20); Immature Granulocytes % (auto) 0.4 %; Lymphocytes # (auto) 1.51 K/uL (1.20-3.40); Lymphocytes % (auto) 16.4 %; Mean Corpuscular Hemoglobin 30.3 pg (25.0-34.0); Mean Corpuscular Hgb Conc 33.6 g/dL (32.0-36.0); Mean Corpuscular Volume 90.1 fL (80.0-100.0); Mean Platelet Volume 9.9 fL (9.4-12.4); Monocytes # (auto) 0.93 K/uL (0.11-0.59); Monocytes % (auto) 10.1 %; Neutrophils # (auto) 6.61 K/uL (1.40-6.50); Platelet Count 138 K/uL (130-400); RDW Coefficient of Variation 13.3 % (11.5-14.5); RDW Standard Deviation 43.7 fL (36.4-46.3); Red Blood Count 2.74 M/uL (4.20-5.40); White Blood Count 9.19 K/ul (4.8-10.8)
[2024-08-21 06:53] LABS: Albumin Globulin Ratio 1.4 (0.9-2); Albumin Level 2.9 gm/dl (3.4-5.0); BUN Creatinine Ratio 25.4 (10-20); Bilirubin,Total 0.7 mg/dl (0.2-1.0); C Reactive Protein 9.25 mg/dl (0-0.5); Calcium 7.7 mg/dl (8.6-10.3); Creatinine Clr Calc Pharmacy 68.6 ml/min; Globulin 2.1 gm/dl (2.5-4.0); Potassium 3.9 mmol/L (3.5-5.1)
[2024-08-21] MEDS: POLYETHYLENE (MIRALAX) 17 GM PACK PO SCH (11:47)
--- NOTE | 2024-08-21 12:31 | Orthopedic Progress Note ---
Date of Service August 21, 2024 Assessment & Plan (1) Status post hemiarthroplasty of right hip: Plan: Patient became symptomatically hypotensive during physical therapy prior to my evaluation. See above. She seemed better once she was laying back in bed. Hemog lobin 8.3. Hospitalist notified. Dressing had a small amount of dried blood on it, was changed yesterday. Dressing changed again today by myself. Total hip precautions Weightbearing as tolerated with walker assistance Abduction pillow use x 6 weeks DVT prophylaxis with Eliquis and RUPAL stockings. Asked nursing to re-apply SCDs today. Pain control with oral medication PT/OT Case management eval for placement based on PT/OT report Will need 2-week follow-up in our clinic With questions contact our clinic at [phone] Admission and Anticipated Discharge Date Admission Date: August 18, 2024 Subjective Patient was seen in bed today following physical therapy. She experienced significant lightheadedness with ambulation and blood pressure dropped into the mid 70s over mid 30s. She was very symptomatic with this. She feels woozy now. Denies any chest pain. The pain in her right hip is improving, better today than it was yesterday. She has been using the abduction pillow. Denies any numbness or tingling in her toes. Physical Exam Constitutional: Laying in bed. Conversational. In no distress. Cardiovascular: DP pulse 2+ on the right Musculoskeletal: Small amount of dried blood present on the right hip dressing. Dressing taken down. Wound is intact with no significant ecchymotic changes. Skin tyler are in place. Surrounding soft tissue without induration. No surrounding skin erythema. No active drainage. No pain in hip with passive log roll. No calf tenderness. Strength 5/5 with ankle plantarflexion, dorsiflexion, inversion, and eversion. Moves all toes. Skin: [place], warm, dry. Neurologic: No sensory deficits in right lower extremity to light touch Results & Data Vital Signs (Past 12 Hours) Vital Signs Temp Pulse Resp BP Pulse Ox O2 Del Method O2 Flow Rate 08/21/24 11:27 98.1 F 89 12 131/66 99 Nasal Cannula 2 08/21/24 07:29 98.2 F 86 18 138/70 95 Nasal Cannula 2 08/21/24 03:33 99.3 F 93 H 18 118/67 95 Nasal Cannula 2 Laboratory Results 08/21/24 05:55 WBC 9.19 RBC 2.74 L Hgb 8.3 L Hct 24.7 L MCV 90.1 MCH 30.3 MCHC 33.6 RDW Std Deviation 43.7 RDW Coeff of Gladys 13.3 Plt Count 138 MPV 9.9 Immature Gran % (Auto) 0.4 Neut % (Auto) 72.0 Lymph % (Auto) 16.4 [place] % (Auto) 10.1 Eos % (Auto) 0.9 Baso % (Auto) 0.2 Neut # (Auto) 6.61 H Lymph # (Auto) 1.51 [place] # (Auto) 0.93 H Eos # (Auto) 0.08 Baso # (Auto) 0.02 Immature Gran # (Auto) 0.04 Sodium 132 L Potassium 3.9 Chloride 100 Carbon Dioxide 29 Anion Gap 3 BUN 16 Creatinine 0.63 Est Cr Clr Drug Dosing 68.6 eGFR 88.52 BUN/Creatinine Ratio 25.4 H Glucose 102 H Calcium 7.7 L Total Bilirubin 0.7 AST 25 ALT 12 Alkaline Phosphatase 47 C-Reactive Protein 9.25 H B-Natriuretic Peptide 78 Total Protein 5.0 L Albumin 2.9 L Globulin 2.1 L Albumin/Globulin Ratio 1.4 Procalcitonin 0.11
[2024-08-21] MEDS ORDERED: SODIUM CHLORIDE 0.9% 50 ML IV PRN (12:33)
[2024-08-21] MEDS ORDERED: SODIUM CHLORIDE 0.9% 100 ML IV PRN (12:33)
--- NOTE | 2024-08-21 22:17 | Hospitalist Progress Note ---
Date of Service August 21, 2024 Assessment & Plan (1) Closed right hip fracture: (2) Primary hypertension: (3) Hyperlipidemia: (4) Depression: Plan Assessment:84 F with history of HTN with mechanical fall and right femoral neck fracture, #Status post mechanical fall with sustained acute right hip fracture. Hemiarthroplasty 08/19/24 Dr Bennett Now orthostatic, likely rrom acute blood loss anemia. due to symptomatic anemia, ordered unit of PRBC # Chronic stable hypertension. Typically on amlodipine and losartan hydrochlorothiazide we will hold losartan hydrochlorothiazide post op Consider restarting when blood pressure rebound #Dyslipidemia. Typically on atorvastatin #History of breast carcinoma very remotely status post lumpectomy and radiation years ago. Lung mass undetermined etiology. She is due for an outpatient PET scan on Tuesday of this coming week. She follows with pulmonology. This PET scan may need to be rescheduled pending discharge from hospital. #depression continue celexa DVT prevention will be per orthopedic choice- apixaban 2.5 twice daily PT OT to direct disposition Admission and Anticipated Discharge Date Admission Date: August 18, 2024 Subjective Patient states feeing well. Patient had however another orthostatic event. Physical Exam Physical Exam: She is awake appropriate Card exam is regular lungs are clear Good distal sensation and capillary refill the left leg Results & Data Results & Data Vital Signs (Past 12 Hours) Vital Signs Temp Pulse Pulse Resp BP BP Pulse Ox 08/21/24 18:15 36.8 C 91 H 16 148/75 H 97 08/21/24 17:51 80 08/21/24 17:41 92 H 18 133/71 96 08/21/24 17:30 37.3 C 92 H 18 133/71 96 08/21/24 16:30 37.5 C 99 H 16 147/67 H 98 08/21/24 16:00 37.1 C 103 H 16 132/68 98 08/21/24 15:45 37.2 C 96 H 16 144/65 H 98 08/21/24 15:23 37.1 C 103 H 16 138/77 98 08/21/24 15:13 37.6 C H 91 H 18 129/74 97 08/21/24 13:08 88 08/21/24 12:41 08/21/24 11:27 36.7 C 89 12 131/66 99 O2 Del Method O2 Flow Rate 08/21/24 18:15 1 08/21/24 17:51 08/21/24 17:41 Nasal Cannula 2 08/21/24 17:30 1 08/21/24 16:30 08/21/24 16:00 1 08/21/24 15:45 1 08/21/24 15:23 1 08/21/24 15:13 Nasal Cannula 2 08/21/24 13:08 08/21/24 12:41 2 08/21/24 11:27 Nasal Cannula 2 PG Care Time/CCT Total # of Minutes Spent Total Time Spent with Patient: Total time spent is greater than 50% in coordination of care (as documented) at patient's floor/unit and/or counseling patient: Coding Level of Care Code 37926 SUB INP/OBS CARE 235MIN Diagnoses Closed right hip fracture S72.001A Primary hypertension I10 Hyperlipidemia E78.5 Depression F32.A
[2024-08-22 06:52] LABS: Hematocrit (blood only) 26.4 % (37.0-47.0); Hemoglobin 9.2 g/dl (12.0-16.0); Mean Corpuscular Hgb Conc 34.8 g/dL (32.0-36.0); Mean Corpuscular Volume 88.9 fL (80.0-100.0); Mean Platelet Volume 10.2 fL (9.4-12.4); Platelet Count 141 K/uL (130-400); RDW Standard Deviation 42.7 fL (36.4-46.3); Red Blood Count 2.97 M/uL (4.20-5.40); White Blood Count 8.49 K/ul (4.8-10.8)
[2024-08-22 07:06] LABS: BUN Creatinine Ratio 26.8 (10-20); Creatinine Clr Calc Pharmacy 76.5 ml/min
--- NOTE | 2024-08-22 10:22 | Orthopedic Progress Note ---
Date of Service August 22, 2024 Assessment & Plan (1) Status post hemiarthroplasty of right hip: Plan: Postop day 4-status post right hip hemiarthroplasty for femoral neck fracture with Dr. Bennett May be out of bed, weightbearing as tolerated. Use walker to assist with ambulation at all times. Posterior hip precautions right hip at all times. Status post 1 unit of packed red blood cells transfused on 08/21/2024. Less symptomatic with lightheadedness or dizziness although she has not been out of bed yet. Denies any chest pain or shortness of breath. Abduction pillow between knees when in bed for 6 weeks after surgery. Standard pillow between knees when sitting in a chair. DVT prophylaxis: Eliquis 2.5 mg p.o. twice daily x 4 to 6 weeks after surgery. Thigh-high RUPAL stockings on during the day and off at night. AV impulse boots or SCDs while inpatient. Pain management as per primary service. PT and OT. Reinforce or change dressing on a daily basis. If dressing is clean dry and intact, no need to change. Case management for disposition. Follow-up with [facility] orthopedics as scheduled. Dr. Bennett present for today's visit. Patient understands and agrees with the plan. Admission and Anticipated Discharge Date Admission Date: August 18, 2024 Subjective Patient is resting in bed. She has not been out of bed yet today. She states yesterday she was very lightheaded but did have a transfusion of 1 unit of packed red blood cells. She states today that she did not sleep well last evening because she was unable to get comfortable. She does not like lying in bed all of the time. She would like to be more active. Denies any significant pain in her right hip. She states that it is painful to move but not significantly painful at rest. Physical Exam Musculoskeletal: Exam of the right lower extremity: No distal edema. Full ankle range of motion with normal strength. Dorsalis pedis and posterior tibial pulses are 1+. Able to wiggle her toes and normal sensation is reported. Calf is supple and nonte nder. She is able to lift her right leg about an inch off of the bed but does reproduce pain in her right hip and thigh. The left leg she can lift easily. The right hip incision is clean, dry and intact. There are some bloody spotting on the dressing that was placed yesterday. This was removed today. The tyler are intact. No active drainage. Mild ecchymosis surrounding the incision but n o underlying seroma or hematoma. A new waterproof dressing was applied to the right hip with Xeroform, 4 x 4's and Tegaderm. Abduction pillow is between her knees. Results & Data Vital Signs (Past 12 Hours) Vital Signs Temp Pulse Pulse Resp BP Pulse Ox O2 Del Method 08/22/24 07:17 36.8 C 90 17 126/68 94 Room Air 08/22/24 02:53 37.3 C 98 H 18 144/82 H 97 Nasal Cannula 08/21/24 22:55 84 08/21/24 22:47 37.6 C H 93 H 18 148/72 H 95 Room Air O2 Flow Rate 08/22/24 07:17 08/22/24 02:53 1 08/21/24 22:55 08/21/24 22:47 Laboratory Results 08/22/24 08/19/24 Range/Units 06:00 08:20 WBC 8.49 (4.8-10.8) K/ul RBC 2.97 L (4.20-5.40) M/uL Hgb 9.2 L (12.0-16.0) g/dl Hct 26.4 L (37.0-47.0) % MCV 88.9 (80.0-100.0) fL MCH 31.0 (25.0-34.0) pg MCHC 34.8 (32.0-36.0) g/dL RDW Std Deviation 42.7 (36.4-46.3) fL RDW Coeff of Gladys 13.0 (11.5-14.5) % Plt Count 141 (130-400) K/uL MPV 10.2 (9.4-12.4) fL Sodium 132 L (136-145) mmol/L Potassium 4.0 (3.5-5.1) mmol/L Chloride 100 (98-107) mmol/L Carbon Dioxide 29 (21-32) mmol/L Anion Gap 3 (3-11) BUN 15 (6-23) mg/dl Creatinine 0.56 L (0.6-1.2) mg/dl Est Cr Clr Drug Dosing 76.5 ml/min eGFR 91.06 BUN/Creatinine Ratio 26.8 H (10-20) Glucose 102 H (70-99(Fasting)) mg/dl Calcium 8.0 L (8.6-10.3) mg/dl Blood Type B Negative Antibody Screen NEGATIVE Crossmatch See Detail
--- NOTE | 2024-08-22 22:26 | Hospitalist Progress Note ---
Date of Service August 22, 2024 Assessment & Plan (1) Closed right hip fracture: (2) Primary hypertension: (3) Hyperlipidemia: (4) Depression: Plan Assessment:84 F with history of HTN with mechanical fall and right femoral neck fracture, #Status post mechanical fall with sustained acute right hip fracture. Hemiarthroplasty 08/19/24 Dr Bennett Orthostasis now improved after unit of PRBC. symptomatic anemia from acute blood loss also improved. discussed with inusrance, inpatient rehab denied. # Chronic stable hypertension. Typically on amlodipine and losartan hydrochlorothiazide we will hold losartan hydrochlorothiazide post op amlodipine has been resumed, Blood pressure soft, will not give on following day unless Blood pressure rebounds #Dyslipidemia. Typically on atorvastatin #History of breast carcinoma very remotely status post lumpectomy and radiation years ago. Lung mass undetermined etiology. She is due for an outpatient PET scan on Tuesday of this coming week. She follows with pulmonology. This PET scan may need to be rescheduled pending discharge from hospital. #depression continue celexa DVT prevention will be per orthopedic choice- apixaban 2.5 twice daily PT OT to direct disposition Admission and Anticipated Discharge Date Admission Date: August 18, 2024 Subjective 84 yo female reports no new symptoms. Discussed with nursing. Patient orthostatic vitals are improved. Physical Exam Physical Exam: She is awake appropriate Card exam is regular lungs are clear Good distal sensation and capillary refill the left leg Results & Data Results & Data Vital Signs (Past 12 Hours) Vital Signs Temp Pulse Resp BP Pulse Ox O2 Del Method 08/22/24 19:13 36.7 C 92 H 18 139/75 95 Room Air 08/22/24 15:14 36.7 C 88 18 147/77 H 96 Room Air 08/22/24 10:50 36.9 C 89 18 96/58 L 98 Room Air PG Care Time/CCT Total # of Minutes Spent Total Time Spent with Patient: Total time spent is greater than 50% in coordination of care (as documented) at patient's floor/unit and/or counseling patient: Coding Level of Care Code 23428 SUB INP/OBS CARE 3/50MIN Diagnoses Closed right hip fracture S72.001A Primary hypertension I10 Hyperlipidemia E78.5 Depression F32.A
[2024-08-22 23:28] VITALS: RESP 16
[2024-08-23 04:37] VITALS: O2SAT 95
[2024-08-23 06:13] LABS: Hematocrit (blood only) 26.8 % (37.0-47.0); Hemoglobin 9.2 g/dl (12.0-16.0); Mean Corpuscular Hgb Conc 34.3 g/dL (32.0-36.0); Mean Corpuscular Volume 90.2 fL (80.0-100.0); Mean Platelet Volume 9.9 fL (9.4-12.4); Platelet Count 183 K/uL (130-400); RDW Coefficient of Variation 13.1 % (11.5-14.5); RDW Standard Deviation 42.9 fL (36.4-46.3); Red Blood Count 2.97 M/uL (4.20-5.40); White Blood Count 7.52 K/ul (4.8-10.8)
[2024-08-23 06:23] LABS: BUN Creatinine Ratio 26.9 (10-20); Calcium 8.4 mg/dl (8.6-10.3); Creatinine Clr Calc Pharmacy 64.3 ml/min; Potassium 4.3 mmol/L (3.5-5.1)
[2024-08-23 07:54] VITALS: BP 144/77; PULSE 85; TEMP 97.9
--- NOTE | 2024-08-23 10:01 | Orthopedic Progress Note ---
Date of Service August 23, 2024 Assessment & Plan (1) Status post hemiarthroplasty of right hip: Plan: The patient was educated regarding today's findings. Her dressing does not require changing today. She will continue working with PT today. Blood pressure is currently excellent at 133/70. Anticipate transfer to [facility] today. Follow-up in the office with Dr. Bennett on August 31 as scheduled. Continue total hip precautions. Admission and Anticipated Discharge Date Admission Date: August 18, 2024 Subjective This 84-year-old female seen today in her room. She is 4 days status post right hip hemiarthroplasty. She states she is feeling little rough. She thinks she is spending too much time in bed. She has no other complaints. She thinks she will be going to [facility]. She is currently working with physical therapy. Physical Exam Physical Exam: General: Well-developed, well-nourished, elderly female, in no acute distress. Sitting on the bed. Alert and oriented. Skin: Warm dry with good turgor. No rashes. No significant ecchymosis or edema. Her postsurgical dressing is in place on the right hip. There is no drainage. Musculoskeletal: The patient has intact motor function of her right lower extrem ity. She has intact dorsiflexion and plantarflexion of the ankle as well as flexion and extension of the knee. Neurologic: Gross sensation is intact across the right leg by soft touch. Results & Data Vital Signs (Past 12 Hours) Vital Signs Temp Pulse Pulse Resp BP BP Pulse Ox 08/23/24 07:52 36.6 C 85 16 144/77 H 95 08/23/24 03:51 37.1 C 99 H 16 129/76 95 08/22/24 23:25 37.4 C 96 H 16 127/70 94 08/22/24 23:16 85 O2 Del Method 08/23/24 07:52 Room Air 08/23/24 03:51 Room Air 08/22/24 23:25 Room Air 08/22/24 23:16 Laboratory Results CBC obtained this morning shows a white count of 7.5. H&H of 9.2 and 26.8. Platelets normal at 283,000. Sodium remains at 132. This appears to be her baseline. Potassium, chloride, and carbon dioxide are normal. BUN of 18 with creatinine 0.67.
--- NOTE | 2024-08-23 11:13 | Discharge Summary ---
Discharge Summary Date of Service August 23, 2024 Principal Dx & Hospital Course #1 = Principal Diagnosis (1) Closed right hip fracture: (2) Primary hypertension: (3) Hyperlipidemia: (4) Depression: Plan Assessment:84 F with history of HTN with mechanical fall and right femoral neck fracture, #Status post mechanical fall with sustained acute right hip fracture. Hemiarthroplasty 08/19/24 Dr Bennett Orthostasis now improved after unit of PRBC. symptomatic anemia from acute blood loss anemia also improved. discussed with inusrance, inpatient rehab denied. # Chronic stable hypertension. Typically on amlodipine and losartan hydrochlorothiazide we will hold losartan hydrochlorothiazide post op amlodipine has been resumed, Blood pressure soft, will not give on following day unless Blood pressure rebounds #Dyslipidemia. Typically on atorvastatin #History of breast carcinoma very remotely status post lumpectomy and radiation years ago. Lung mass undetermined etiology. She is due for an outpatient PET scan on Tuesday of this coming week. She follows with pulmonology. This PET scan may need to be rescheduled pending discharge from hospital. #depression continue celexa DVT prevention will be per orthopedic choice- apixaban 2.5 twice daily PT OT to direct disposition Admission HPI Per Admitting Provider Pleasant 84-year-old female went and got some groceries was trying to get her groceries up the steps had a mechanical fall. She had resultant right hip pain presented the ER for further evaluation and treatment. Head CT and cervical spine CT were negative for acute findings. Plain film x-rays of the hip are inconclusive CAT scan was performed which demonstrated right femoral neck fracture. We are called admit the patient further evaluation and treatment and orthopedic consultation orthopedics has been consulted and plan is to operate at 7:30 in the morning. Will keep the patient n.p.o. after midnight. The patient has no other complaints. She denies any loss of consciousness pre or post fall this was a mechanical fall. Discharge Plan Discharge Items Patient Disposition: Transfer Intermediate Fac Reason For Visit: FX HIP Discharge Diagnosis: Right hip status post hemiarthroplasty Condition on Discharge: Good Activity: Per Instructions section Lifting: Wait until after follow-up appointment Bathing: Keep incision dry Exercise/Sports: Wait until after follow-up appointment Driving/Machine Use: No driving until cleared by Dr. Bennett Weightbearing: Full weightbearing Weightbearing Comment: Use walker or cane as balance and strength dictate Non-emergency contact: Surgeon Call non-emergency contact if: you have any medication questions, your pain is not controlled, your temperature is above 101, your wound has increased redness, your wound has increased drainage and your wound pain has increased Follow-up/Referrals: Naomi Pfeiffer MD [Primary Care Provider] - Eusebio Bennett MD [Surgeon] - 08/31/24 8:00 am Diet: Heart Healthy Addtl Attending Provider Instructions: Due to hypotension, and acute blood loss anemia from surgery Addtl Loom Setter Provider Instructions: Orthopedic Instructions: Posterior hip precautions on operative leg. Weightbearing as tolerated with walker assistance Abduction pillow use x 6 weeks at all times when in bed. Standard pillow between knees when in bed. DVT prophylaxis with Eliquis x 4-6 weeks. RUPAL stockings on during the day; off at night. Physical therapy/Occupational therapy Regular diet Okay to shower starting 4 days after surgery. Okay to get incision wet. Pat incision dry. Do not soak or submerge incision. Reapply dressing after bathing. Keep incision covered with light dressing. Change every 2 days or as needed. If waterproof dressing in place, may leave in place until it needs reinforced or changed. Will need 2-week follow-up in our clinic (Dr. Bennett 08/31/24 @ 8:00) Please contact our office with questions at [phone] Pending Studies at Discharge: No Stand-Alone Forms: My [facility] Skilled Items Patient informed of condition?: Yes Discharge Level of Care: Skilled Communicable Disease: No Discharge Prognosis: Stable Lines: None Medications and DC Order Prescriptions: No Action cholecalciferol (vitamin D3) 25 mcg (1,000 unit) capsule 2,000 unit PO QAM fluoride (sodium) [PreviDent 5000 Dry Mouth] 1.1 % paste 1 applic dental HS Rx Instructions: as directed atorvastatin 20 mg tablet 20 mg PO HS citalopram 10 mg tablet 10 mg PO HS amlodipine 5 mg tablet 5 mg PO QAM telmisartan 40 mg tablet 40 mg PO HS omeprazole 20 mg capsule,delayed release(DR/EC) 20 mg PO QAM hydrochlorothiazide 12.5 mg tablet 12.5 mg PO QAM Jublia 10 % solution with applicator 1 applic topical HS Rx Instructions: apply to toenails once a day. Admission Data Admit Date/Time: 08/18/24 20:14 Attending Provider: Glenn Perdomo Admit Provider: Clemente Bourgeois Primary Care Provider: Naomi Pfeiffer Other Providers: Clemente Bourgeois; Eusebio Benentt; [facility]; [facility]; [facility] Stay Data Consultations 08/18/24 18:48 ED Decision to Admit Stat 08/18/24 20:13 Consult Orthopedic Surgery Routine Procedures Performed Operation Date: 08/19/24 07:30 Actual Procedures p Right hip cemented hemiarthroplasty; right abductor repair(Right) - Eusebio Bennett MD Diagnostic Imagining Performed 08/18/24 16:48 CT cervical spine wo con Stat CT head/brain wo con Stat 08/18/24 17:41 CT hip RT wo con Stat Pending Results Patient Have Any Pending Studies at Discharge: No Discharge Instructions Given to Patient (Per Discharging Provider) Due to hypotension, and acute blood loss anemia from surgery Coding Diagnoses Closed right hip fracture S72.001A Primary hypertension I10 Hyperlipidemia E78.5 Depression F32.A
== END 2024-08-23 13:34 | DRG 522 ==
LOC: ED 16:14 → SUATTDRO 20:14 → EDINP 20:14 → 2S 21:42

== ENCOUNTER 2025-07-18 10:39 | Observation (INO) ==
--- NOTE | 2025-06-12 10:23 | PAT Medication Instructions ---
Medication Instructions Date of Service June 12, 2025 Home Medications Medication Instructions Recorded amlodipine 5 mg tablet 5 mg PO QAM #90 tabs 01/18/25 citalopram 10 mg tablet 10 mg PO HS #90 tabs 01/18/25 telmisartan 40 mg tablet 40 mg PO HS #90 tabs 01/18/25 atorvastatin 20 mg tablet 20 mg PO HS #90 tabs 05/24/25 efinaconazole 10 % topical 1 applic topical HS #8 mL 05/24/25 solution with applicator (Jublia) cholecalciferol (vitamin D3) 25 mcg (1,000 unit) capsule 2,000 unit PO QAM amlodipine 5 mg tablet 5 mg PO QAM citalopram 10 mg tablet 10 mg PO HS telmisartan 40 mg tablet 40 mg PO HS atorvastatin 20 mg tablet 20 mg PO HS efinaconazole 10 % topical solution with applicator (Jublia) 1 applic topical HS multivitamin 1 tab PO QAM hydrochlorothiazide 12.5 mg tablet 12.5 mg PO QAM STOP taking 24 hours before surgery efinaconazole 10 % topical solution with applicator (Jublia) 1 applic topical HS DO NOT take the morning of surgery cholecalciferol (vitamin D3) 25 mcg (1,000 unit) capsule 2,000 unit PO QAM multivitamin 1 tab PO QAM hydrochlorothiazide 12.5 mg tablet 12.5 mg PO QAM Take morning of surgery With a small sip of water, OTHERWISE NOTHING TO EAT OR DRINK AFTER MIDNIGHT: amlodipine 5 mg tablet 5 mg PO QAM Take evening before surgery citalopram 10 mg tablet 10 mg PO HS telmisartan 40 mg tablet 40 mg PO HS atorvastatin 20 mg tablet 20 mg PO HS Other Notes If you have any questions please call us at [phone] or [phone] or [phone] or [phone]
--- NOTE | 2025-06-21 11:50 | Anesthesiology Consultation ---
Date of Service June 21, 2025 Assessment & Plan (1) Encounter for pre-operative examination: Plan - awaiting surgeon ordered [place] PCP medical clearance, 06/25/25. If cleared by PCP, patient is acceptable to proceed per discussion with Dr. Roberts. - cardiology office note 01/17/25 [place]: "...Frequent PACs: According to records, she went into atrial fibrillation following lobectomy in December 2024, however, available ECG and rhythm strips from her hospitalization were reviewed with Dr. Alicia and the rhythm was not actually a fib...known to have frequent PACs and irregularity of her rhythm, which can be concerning for a fib, but patient has not had any true documentation of atrial fibrillation. As such, would not recommend long-term anticoagulation for patient. If she were to have documented a fib in the future, would then recommend anticoagulation therapy...asymptomatic with the PACs and no specific treatment is indicated for ectopy. Shortness of breath: Likely related to recent lobectomy. She appears euvolemic on exam...Fol low-up in cardiology as needed..." Nothing further needed from cardiology per detailed discussion with Dr. Roberts. - neuraxial anesthesia-patient states was advised to have this by surgeon especially with lung cancer history, expresses concerns with back history. We discussed anesthesia options in detail including risk profile. She states is open to neuraxial anesthesia. We discussed Dr. Roberts's recommendation for neuraxial anesthesia as well given lobectomy 6 months ago. She indicated comfort with plan and I encouraged her to call our office with any additional questions or concerns and advised ultimate determination will be to her discussion with assigned anesthesiologist DOS. - Outpatient joint assessment: Patient is currently scheduled for inpatient pathway. If re-evaluated and patient/surgeon requests outpatient pathway, patient is not a candidate for outpatient joint program. Chart Review Chart Review: Patient seen in Pre Admission Testing Teaching & Discussion Pre-Anesthesia Teaching/Discussion Notes: Instructed NPO after midnight before surgery, except medications with 15 cc of water. Medication instructions provided according to the PAT guidelines. History Surgery Operation Date: 07/18/25 12:25 Proposed Procedures p Open Right Total Knee Arthroplasty - Eusebio Tolliver MD Height/Weight Height: 5 ft 2 in Weight: 70.7 kg Allergies Allergy/AdvReac Type Severity Reaction Status Date / Time Sulfa (Sulfonamide Allergy Severe whole Verified 06/12/25 09:48 Antibiotics) face, legs, arms swelling nickel Allergy Mild soreness/swelling Verified 06/12/25 09:48 with earrings lisinopril AdvReac Mild Cough Verified 06/12/25 09:48 Medications Home Medications Medication Instructions Recorded Confirmed Last Taken cholecalciferol (vitamin D3) 25 2,000 unit PO QAM 12/28/22 06/12/25 08/17/24 mcg (1,000 unit) capsule amlodipine 5 mg tablet 5 mg PO QAM #90 tabs 01/18/25 06/12/25 Unknown citalopram 10 mg tablet 10 mg PO HS #90 tabs 01/18/25 06/12/25 Unknown telmisartan 40 mg tablet 40 mg PO HS #90 tabs 01/18/25 06/12/25 Unknown atorvastatin 20 mg tablet 20 mg PO HS #90 tabs 05/24/25 06/12/25 Unknown efinaconazole 10 % topical 1 applic topical HS #8 mL 05/24/25 06/12/25 Unknown solution with applicator (Jublia) multivitamin 1 tab PO QAM 05/24/25 06/12/25 Unknown hydrochlorothiazide 12.5 mg tablet 12.5 mg PO QAM 06/12/25 06/12/25 Unknown Past Medical History Medical History Atrial ectopy Chronic hyponatremia Closed right hip fracture (08/18/24) right femoral neck fracture from a fall DDD (degenerative disc disease), lumbar Depression History of blood transfusion shilpa-operative hip surgery History of right breast cancer diagnosed 2014--lumpectomy/radiation-denies limb restriction Hypertension controlled, stable per pt Mixed conductive and sensorineural hearing loss of left ear with restricted hearing of right ear Osteoarthritis Osteoporosis per medical record - pt reports she was told osteopenia. Prediabetes diet controlled - last A1C% 5.9 (07/2024) Stage II adenocarcinoma of lung incidental finding -> ~08/2024, treated surgically at [facility] (surgery for lobectomy 12/2024) Patient denies h/o stroke, seizures, heart attack, heart failure, or blood clots/DVTs. Exercise / Class Metabolic Activity II 4-5 Yardwork/Stairs/Walk up hill (denies chest discomfort or shortness of breath walking up one flight of stairs) Past Family History Family History Mother Breast cancer Sister Breast cancer Son Myocardial infarction Son Valvular heart disease mitral valve surgery Other No family history of adverse response to anesthesia Denies family history of Ovarian cancer Prostate cancer Lung cancer Colorectal cancer Stroke Past Surgical History Surgical History H/O lumpectomy 2014--right breast History of bilateral cataract extraction History of bilateral tubal ligation History of carpal tunnel surgery right wrist History of colonoscopy History of placement of ear tubes History of wisdom tooth extraction S/P lobectomy of lung (12/13/24) lower left lobectomy at [facility] [place] (12/13/24). Status post hemiarthroplasty of right hip (08/18/24) with Dr. Bennett Past Anesthesia History No Hx of Anesthesia Complications and No Family Hx of Anesthesia Complications History of PONV No Hx of PONV and No Hx of Motion Sickness Social History Smoking Status: Never smoker Do You Dip or Chew Tobacco: No Hx Alcohol Use: Yes Alcohol type: wine alcohol intake frequency: holidays/special occasions only Hx Substance Use: No substance use type: does not use Review of Systems Patient denies chest pain, shortness of breath, dyspnea on exertion, snoring, witnessed apneas, fever, chills, cough, wheezing, or palpitations. Physical Exam Vital Signs Vitals BP 114/72 P 91 TEMP 97.8 SP02 97% on RA RESP 18 Physical Patient resting comfortably in chair in no acute distress, alert and oriented, responding appropriately throughout visit Full cervical extension range of motion without pain TMD 3.5 finger breadths Mallampati Score 2 Dentition: intact, denies chipped or loose teeth, caps/crowns, implants or bridges Lungs: normal respiratory effort. Good air movement, clear throughout to auscultation, no adventitious breath sounds Cardiac: regular rate and rhythm, no murmurs noted Carotid arteries: negative bruit bilat Lab Results Anesthesia Preop Results Results Anesthesia Widget: WBC 8.33 K/ul (4.8-10.8) 06/21/25 Hgb 12.3 g/dl (12.0-16.0) 06/21/25 Hct 37.5 % (37.0-47.0) 06/21/25 Plt 292 K/uL (130-400) 06/21/25 Na 135 mmol/L (136-145) L 06/21/25 K 3.6 mmol/L (3.5-5.1) 06/21/25 Cl 98 mmol/L (98-107) 06/21/25 CO2 27 mmol/L (21-32) 06/21/25 BUN 13 mg/dl (6-23) 06/21/25 Creat 0.87 mg/dl (0.6-1.2) 06/21/25 Glucose Level 124 mg/dl (70-99(Fasting)) H 06/21/25 PT 10.6 Seconds (9.0-12.0) 06/21/25 PTT 25 Seconds (21-31) 06/21/25 INR 1.0 (0.9-1.1) 06/21/25 Urine Color Yellow 06/21/25 Urine Appearance Clear (Clear) 06/21/25 Urine pH 5.5 (4.5-7.5) 06/21/25 Urine Specific [place] 1.010 (1.000-1.030) 06/21/25 Urine Protein Negative (Negative) 06/21/25 Urine Glucose (UA) Negative (Negative) 06/21/25 Urine Ketones Negative (Negative) 06/21/25 Urine Blood Negative (Negative) 06/21/25 Urine Nitrite Negative (Negative) 06/21/25 Urine Bilirubin Negative (Negative) 06/21/25 Urine Urobilinogen Negative (Negative) 06/21/25 Urine Leukocyte Esterase 2+ (Negative) H 06/21/25 Urine WBC (Auto) 6-10 /hpf (0-5) H 06/21/25 Urine RBC (Auto) 0-2 /hpf (0-2) 06/21/25 Urine Hyaline Casts (Auto) 0-2 /lpf (0-2) 06/21/25 Urine Epithelial Cells (Auto) 0-2 /hpf (0-2) 06/21/25 Urine Bacteria (Auto) None Seen (None Seen) 06/21/25 Blood Type B Negative 06/21/25 Antibody Screen NEGATIVE 06/21/25 Testing Electrocardiogram Date: 01/17/25 Sinus rhythm with PACs, rate 87 bpm Left axis deviation Possible inferior infarct, age undetermined Poor R wave progression, consider anterior FL vs lead placement vs LVH Chest X-Ray Date: 06/21/25 Stable operative changes at the left lower lung with elevation of the left hemidiaphragm and blunting of the left costophrenic angle. No new consolidation or pleural effusion seen. No pneumothorax. Heart size and pulmonary vasculature are normal. IMPRESSION: No acute findings. Echocardiogram Date: 02/07/23 EF 65-70% Mild cLVH Mild mitral annular calcification Mild tricuspid regurgitation Pulmonary Function Test Date: 03/25/25 Mild to moderate restrictive lung dysfunction Mild decrease in TLC with moderate decrease in ERV No obstruction, insignificant bronchodilator response Moderate decrease in DLCO Cervical Spine Date: 08/18/24 No acute fracture or traumatic subluxation. Other Testing Chest CT 04/09/25 1. Prior left lower lobectomy. 2. Left-sided hydropneumothorax with trace pneumothorax and [id number] amount of pleural fluid. 3. No suspicious pulmonary nodules, new or progressive lymphadenopathy of the chest. 4. Stable low suspicion pulmonary nodules measuring up to 4 mm. 5. Thyroid goiter. Cardiac event monitor 10/24/24 Sinus rhythm with frequent atrial ectopy Min 55, average 85 and max 146 bpm Very frequent atrial ectopy totaling 31% of all beats Infrequent ventricular ectopy without sustained ventricular arrhythmias No significant bradycardia, pauses or heart block Several episodes were labeled as "atrial fibrillation" but these were likely sustained atrial tachycardias lasting 1 to 2 minutes. There were no extended episodes of high heart rates or definitive atrial fibrillation PET scan 09/19/24 Increased uptake at the posterior superior left lower lobe lung mass consistent with malignancy. No other abnormal uptake seen. Otherwise as described. Head CTA 05/12/23 1. No acute intracranial abnormality. 2. Left scalp and facial contusions. 3. Unremarkable CTA. 4. Large left mastoid effusion.
[~2025-07-18 10:39] MED LIST changes: -ATOR-22 PO; +BUPIVACAINE 0.5 % 5 MG/1 ML PF 10ML VIAL ONE; -HYDR25TA5 PO; -LISI40TA PO; +LR 500ML BOLUS IV SCH; -PRLSR20 PO; +PROPOFOL IV EMULSION 10 MG/ML 100 ML VIAL IV ONE; +ROPIVACAINE 0.5% 5 MG/ML 30 ML VIAL ONE
[2025-07-18] MEDS: ACETAMINOPHEN 500 MG TAB PO SCH ×2 (11:03→21:16)
[2025-07-18] MEDS: FAMOTIDINE 20 MG TAB PO SCH (11:03)
[2025-07-18] MEDS: CeleBREX 200 MG CAP PO SCH (11:03)
[2025-07-18] MEDS: dexAMETHasone**PF** 10 MG/ML VIAL IV SCH (11:03)
[2025-07-18] MEDS: LR 60ML/HR IV SCH (11:04)
[2025-07-18] MEDS: LR 500ML BOLUS, THEN 15ML/HR IV SCH (11:32)
[2025-07-18] MEDS ORDERED: LIDOCAINE 2% 2 ML VIAL/AMP(20MG/ML) INFIL ONE (11:38)
[2025-07-18] MEDS ORDERED: MIDAZOLAM HCL 1 MG/ML 2ML VIAL ONE (11:38)
[2025-07-18] MEDS ORDERED: ATROPINE SULFATE 0.1 MG/ML 10ML SYR IV PRN (11:47)
[2025-07-18] MEDS ORDERED: HYDROmorphone INJ 2 MG/ML SYR/VIAL IV PRN (11:47)
[2025-07-18] MEDS ORDERED: ONDANSETRON INJ 2 MG/ML 2 ML VIAL IV PRN ×2 (11:47→14:39)
[2025-07-18] MEDS ORDERED: PROMETHAZINE HCL 6.25 MG in SODIUM CHLORIDE 0.9% 50 ML IV PRN (11:47)
--- NOTE | 2025-07-18 12:19 | History & Physical Bridge Note ---
Date of Service July 18, 2025 History & Physical Bridge Note I have examined the patient, reviewed the History & Physical and in the interval since the performance of the History & Physical I have noted the following changes of clinical significance: no changes noted
[2025-07-18] MEDS: TRANEXAMIC ACID 1,000 MG **IV Pre-op IV SCH (12:41)
[2025-07-18] MEDS ORDERED: PHENYLEPHRINE 100MCG/ML 5ML SYR ONE ×2 (13:07→14:02)
[2025-07-18] MEDS ORDERED: ONDANSETRON INJ 2 MG/ML 2 ML VIAL ONE (13:16)
[2025-07-18] MEDS: ROPIV 0.5% 246mg, Ketorolac 30mg, EPINEPHrine 0.5mg in NSS INFIL SCH (13:29)
[2025-07-18] MEDS: ORTHO JOINT ANESTHETIC ONE (13:29)
--- NOTE | 2025-07-18 14:37 | Operative Report ---
Post Operative Report Pre & Post Diagnosis Operation Date: 07/18/25 12:35 Pre-Op Diagnosis: Right Knee Degenerative Joint Disease Post-Op Diagnosis: Right Knee Degenerative Joint Disease I identified the patient and participated in the time-out.: Yes Procedure Operation Date: 07/18/25 12:35 Actual Procedures p Right Total Knee Arthroplasty(Right) - Eusebio Tolliver MD Surgeon Eusebio Tolliver MD [employer] Brayan Kwon PAMaria De Jesus Estimated Blood Loss 100 Findings Consistent with Post-Op Diagnosis Specimens Right knee bone and soft tissue Description of Procedure I was present during the entire case assisting with positioning, prepping, draping, wound retraction, wound closure, dressing and immobilizer placement. No fellow present. Please see Dr. Tolliver operative note for specifics of the case. I attest to the content of the Intraoperative Record and any orders documented therein. Any exceptions are noted below.
--- NOTE | 2025-07-18 14:38 | Operative Report ---
Post Operative Report Pre & Post Diagnosis Operation Date: 07/18/25 12:35 Preoperative diagnosis: Right knee osteoarthritis and valgus malalignment Postoperative diagnosis: Right knee osteoarthritis and valgus malalignment I identified the patient and participated in the time-out.: Yes Procedure Operation Date: 07/18/25 12:35 Right total knee arthroplasty Surgeon Eusebio Tolliver MD Machine Heddle Cleaner JOSE ANGEL Kwon PA-C. No resident or fellow was available to assist. Estimated Blood Loss 100 Findings Consistent with Post-Op Diagnosis Specimens Right knee bone and soft tissue contents. Anesthesia Type Spinal MAC Complications none Disposition Disposition: Recovery Room Indications 84-year-old female, with right knee osteoarthritis refractory to conservative management. X-rays demonstrate [id number] disease in the lateral compartment and tricompartmental osteophyte formation as well as valgus malalignment on the long-leg films. She is status post an ipsilateral cemented hemiarthroplasty for femoral neck fracture as well. I had a long discussion with the patient about her risks and benefits of surgery, alternatives to surgery, and expected outcomes. After reviewing all these she elected to proceed with surgery. All questions were answered. Informed consent was signed. Description of Procedure Patient was identified in the preoperative holding area where the surgical site, right knee, was marked. Spinal anesthetic was placed by anesthesia. Patient was brought back to the operating room, placed on the operating room table, and IV sedation was administered. A bump was placed underneath the ipsilateral hip. All bony prominences were padded. Perioperative antibiotics and tranexamic acid were administered. Exam under anesthesia was performed. This demonstrated range of motion from 5 to 105 degrees. She was stable to varus and valgus stress test at 30 degrees. The surgical site was prepped and draped in the normal sterile fashion. Prior to incision a multidisciplinary timeout was called. All in the room were in agreement. We began by exsanguinating the limb with an Esmarch bandage. Tourniquet was inflated to 250 mmHg. A 14 cm long incision was made over the anterior aspect of the knee. I dissected through the subcutaneous tissues to the level of the fascia. Full-thickness flaps were raised above the fascia. A median parapatellar arthrotomy was made. Half the fat pad was excised. A medial release was performed with Bovie electrocautery on the proximal tibia. Synovitis in the knee and suprapatellar pouch was removed. The patella was then everted and held with 2 towel clips. The thickness of the patella was measured at 20 mm. Patellar resection was performed. Caliper showed the patella thickness now to be 14 mm. A size 32 trial was placed and had great fit. The 3 drill holes were placed then the trial button was placed. The patellar thickness was now 22 mm which I was very happy with. The patellar trial was then removed, and the knee was flexed up. Retractors were placed to protect the MCL and LCL. Osteophytes were removed from the femoral condyles and intercondylar notch. The ACL and PCL were excised. Intramedullary drill guide was drilled into the femur. Distal femoral cutting guide was placed set at 5 degrees of valgus to resect 9 mm off the distal femur. Distal femoral resection was made without difficulty. I then marked out the epicondylar axis and Whitesides lines. The femur was then sized to a size 4 and drill holes were made in the distal femur parallel to the epicondylar axis and perpendicular to Whitesides line. A size 4 cutting block was secured to the distal femur and the 5 cuts were made. Next, the tibia was then exposed. The lateral meniscus was sharply excised. The tibial cutting jig was positioned in line with the tibial shaft in the coronal plane and with 3 degrees of posterior slope in the sagittal plane to resect 4 mm off the more involved lateral compartment. The jig was then pinned in position and the tibial cut was made. We then brought the knee into full extension. Lamina spreaders were placed. The medial meniscus was excised. The extension gap was rectangular which I was happy with. Next the knee was flexed up, and the flexion gap was checked. This was also rectangular which I was happy with. The box cutting jig was placed on the distal femur. I used the drill followed by the punch to remove the box from the femur. The femoral trial was then impacted into position. We then reexposed the tibia. The tibia was sized to a 3 for a fixed bearing component and pinned in external rotation on the cut tibial surface. The tibial tray with a 9 mm thickness polyethylene liner was placed and the knee was brought through a full range of motion. There was excellent stability to varus valgus stress throughout a full range of motion, which was approximately 0-125 degrees. The intramedullary drill followed by the keel punch were used to prepare the tibia. Next the trial components were removed. I then injected the posterior capsule and periosteum with the periarticular injection cocktail. The bone cuts were then irrigated and dried while the cement was mixed on the back table. The fe moral component was cemented on first. Excess cement was removed. A lap sponge was placed over the femoral component for protection, then the tibia was subluxated anteriorly. The tibial component was then cemented in place. Again excess cement was removed. The polyethylene insert was then locked into the tibial tray using the jig. The knee was brought into full extension and held there until the cement cured. The patella was cemented and clamped. Dilute chlorhexidine solution was then allowed to soak in the knee while the cement cured. Once the cement was fully cured, the knee was irrigated out, the tourniquet was let down and meticulous hemostasis was ensured. The knee was brought through a full range of motion. I was were very happy with the patella tracking and the stability. We then began to close. Interrupted 0 Vicryl suture was used to repair the patellar retinaculum in [id number] fashion. The quadriceps and patellar tendons were run with #1 Vicryl. The deep dermal layer was closed with interrupted 2-0 Vicryl. Dermabond and Zipline was used for the skin, followed by a Silverlon dressing. A compressive Odell wrap was placed and the knee was placed into a knee immobilizer. Patient's sedation was lifted and was transferred to recovery room in stable condition. Summary of implants: [employer] journey knee, size 4 right femur, size 3 tibia with 9 mm t hickness standard polyethylene insert. 32 mm oval medialized patella 2 batches of Palacos bone cement Postoperative course: Patient will be admitted to the floor for pain control and monitoring. Weightbearing as tolerated with a walker with no knee range of motion for 48 hours. Aspirin for DVT prophylaxis. I attest to the content of the Intraoperative Record and any orders documented therein. Any exceptions are noted below.
[2025-07-18] MEDS ORDERED: ALUMINUM/MAGNESIUM SUSP 30 ML UDC PO PRN (14:39)
[2025-07-18] MEDS ORDERED: METOCLOPRAMIDE HCL INJ 5 MG/ML 2 ML VIAL IV PRN (14:39)
[2025-07-18] MEDS ORDERED: diphenhydrAMINE 50 MG/ML VIAL IV PRN (14:39)
[2025-07-18] MEDS ORDERED: HYDROmorphone INJ 0.5 MG/0.5 ML SYR IV PRN (14:39)
[2025-07-18] MEDS ORDERED: MAGNESIUM HYDROXIDE SUSP 30 ML UDC PO PRN (14:39)
[2025-07-18] MEDS ORDERED: NALOXONE HCL 0.4 MG/1 ML VIAL/CARP IV PRN (14:39)
--- NOTE | 2025-07-18 15:28 | XRay Report ---
XR knee RT 1 or 2V routine HISTORY: 84 years-old Female Surgical Post Op right knee arthroplasty COMPARISON: 06/21/2020 TECHNIQUE: 2 views of the right knee FINDINGS: Total joint arthroplasty with patellar resurfacing. No acute fracture, dislocation or unexpected opaq ue foreign body. Expected postoperative soft tissue swelling with deep tissue air. IMPRESSION: Satisfactory alignment of the total arthroplasty. ACT 112: Negative or not required by law. The above report was generated using voice recognition software. It may contain grammatical, syntax o r spelling errors. Electronically signed by: Vaibhav Bowen M.D. 07/18/2025 3:27 PM
--- NOTE | 2025-07-18 15:48 | Anesthesiology Progress Note ---
Date of Service July 18, 2025 Anesthesia Post Procedure Vital Signs Vital Signs: Temp Pulse Pulse Resp BP Pulse Ox O2 Del Method 07/18/25 15:30 81 17 134/62 96 Room Air 07/18/25 15:15 36.4 C L 80 17 131/63 97 Room Air 07/18/25 15:05 102 H 20 129/61 100 Oxymask 07/18/25 14:55 86 18 123/59 L 100 Oxymask 07/18/25 14:45 87 18 114/52 L 98 Oxymask 07/18/25 14:37 36.0 C L 89 18 119/54 L 97 Oxymask 07/18/25 10:55 36.4 C L 95 H 18 138/77 97 Room Air O2 Flow Rate 07/18/25 15:30 07/18/25 15:15 07/18/25 15:05 5 07/18/25 14:55 5 07/18/25 14:45 5 07/18/25 14:37 5 07/18/25 10:55 Pain Intensity Right Knee: Pain Intensity: 2 Transfer of Care Handoff Completed per policy Notes Mental Status: alert / awake / arousable Patient Amnestic to Procedure: Yes Nausea / Vomiting: adequately controlled Pain: adequately controlled Airway Patency, RR, SpO2: stable & adequate BP & HR: stable & adequate Hydration State: stable & adequate Anesthetic Complications: no major complications apparent
[2025-07-18] MEDS: KETOROLAC TROMETHAMINE 15 MG/ML VIAL IV SCH (17:42)
[2025-07-18] MEDS: Scopolamine CHECK PATCH PLACEMENT SCH (17:45)
[2025-07-18] MEDS: SODIUM CHLORIDE 0.9% 1,000 ML IV SCH (17:53)
[2025-07-18] MEDS: ATORVASTATIN 20 MG TAB PO SCH (21:11)
[2025-07-18] MEDS: LOSARTAN POTASSIUM 50 MG TAB PO SCH (21:11)
[2025-07-18] MEDS: CITALOPRAM 20 MG TAB PO SCH (21:11)
[2025-07-18] MEDS: DOCUSATE SODIUM 100 MG CAP PO SCH (21:16)
[2025-07-18] MEDS: SENNA 8.6 MG TAB PO SCH (21:16)
[2025-07-18] MEDS ORDERED: Nursing to Pharmacy Communication SCH (23:45)
[2025-07-19 03:41] VITALS: TEMP 98.1
[2025-07-19 07:26] LABS: Hematocrit (blood only) 31.3 % (37.0-47.0); Hemoglobin 10.7 g/dL (12.0-16.0); Mean Corpuscular Hemoglobin 30.0 pg (25.0-34.0); Mean Corpuscular Volume 87.7 fL (80.0-100.0); Platelet Count 246 K/uL (130-400); RDW Standard Deviation 47.7 fL (36.4-46.3); Red Blood Count 3.57 M/uL (4.20-5.40); White Blood Count 14.63 K/ul (4.8-10.8)
[2025-07-19 07:47] LABS: Anion Gap 8.0 (3-11); Blood Urea Nitrogen 16.0 mg/dl (6-23); Carbon Dioxide 27.0 mmol/L (21-32); Chloride 99.0 mmol/L (98-107); Creatinine Clr Calc Pharmacy 44.2 ml/min; Glucose 111.0 mg/dl (70-99(Fasting)); Potassium 4.1 mmol/L (3.5-5.1); Sodium 134.0 mmol/L (136-145)
[2025-07-19 08:09] VITALS: PULSE 91; RESP 16
[2025-07-19] MEDS: CHOLECALCIFEROL 25 MCG (1000 UNITS) TAB PO SCH (08:17)
[2025-07-19] MEDS: MULTIVITAMIN TAB PO SCH (08:17)
[2025-07-19] MEDS: dexAMETHasone 10 MG in SYRINGE 0 ML IV SCH (08:17)
[2025-07-19] MEDS: ASPIRIN 81 MG ECTAB PO SCH (08:17)
[2025-07-19] MEDS: hydroCHLOROthiazide 25 MG TAB PO SCH (08:18)
[2025-07-19 08:32] LABS: Calcium 9.1 mg/dl (8.6-10.3)
--- NOTE | 2025-07-19 09:18 | Orthopedic Progress Note ---
Date of Service July 19, 2025 Assessment & Plan (1) S/P total knee arthroplasty: Plan: Weightbearing as tolerated with walker assistance Immobilizer use x 48 hours PT/OT Pain control p.o. medication DVT prophylaxis with with RUPAL stockings and aspirin Ice to the easy wrap Keep Silverlon dressing in place until follow-up Plan is to discharge home today with in-home physical therapy for the first 2 weeks Follow-up at [facility] orthopedics as previously scheduled With questions contact our clinic at [phone] Admission and Anticipated Discharge Date Admission Date: July 18, 2025 Subjective This 84-year-old female is day 1 status post right total knee arthroplasty. Patient is doing very well. She is dressed and ready to go home. She states that her son is staying with her for the first few weeks. Patient states that her pain is well-controlled with p.o. pain medication that she was given. Currently she denies chest pain, shortness of breath, fever, chills, sweats, nausea, vomiting, diarrhea, difficulty voiding or numbness or tingling in her right lower extremity. Review of Systems Review of Systems: All systems reviewed & are unremarkable except as noted in Subjective Physical Exam Physical Exam: Right knee: Outer dressing was removed. Silverlon is clean dry and intact and left in place. Patient is able to easily transition from a seated to a standing position with her walker. Active knee range of motion is from 0 degrees of extension to near 90 degrees of flexion. She is able to easily perform an active straight leg raise test and actively dorsi and plantarflex her foot. Her calf is soft and supple and nontender to palpation. Her peripheral pulses are 2+. She is neurovascularly intact in the right lower extremity. Results & Data Vital Signs (Past 12 Hours) Vital Signs Temp Pulse Pulse Resp BP Pulse Ox O2 Del Method 07/19/25 08:08 36.7 C 91 H 16 107/62 97 Room Air 07/19/25 02:00 36.7 C 92 H 17 148/84 H 95 Room Air 07/18/25 22:53 36.5 C 117 H 18 141/86 H 96 Room Air 07/18/25 22:02 Room Air Diagnostic Findings Laboratory Results WBC 14.63 K/ul (4.8-10.8) H 07/19/25 07:02 RBC 3.57 M/uL (4.20-5.40) L 07/19/25 07:02 Hgb 10.7 g/dL (12.0-16.0) L 07/19/25 07:02 Hct 31.3 % (37.0-47.0) L 07/19/25 07:02 MCV 87.7 fL (80.0-100.0) 07/19/25 07:02 MCH 30.0 pg (25.0-34.0) 07/19/25 07:02 MCHC 34.2 g/dL (32.0-36.0) 07/19/25 07:02 RDW Std Deviation 47.7 fL (36.4-46.3) H 07/19/25 07:02 RDW Coeff of Gladys 14.7 % (11.5-14.5) H 07/19/25 07:02 Plt Count 246 K/uL (130-400) 07/19/25 07:02 MPV 9.8 fL (9.4-12.4) 07/19/25 07:02 Sodium 134 mmol/L (136-145) L 07/19/25 07:02 Potassium 4.1 mmol/L (3.5-5.1) 07/19/25 07:02 Chloride 99 mmol/L (98-107) 07/19/25 07:02 Carbon Dioxide 27 mmol/L (21-32) 07/19/25 07:02 Anion Gap 8 (3-11) 07/19/25 07:02 BUN 16 mg/dl (6-23) 07/19/25 07:02 Creatinine 0.90 mg/dl (0.6-1.2) 07/19/25 07:02 Est Cr Clr Drug Dosing 44.2 ml/min 07/19/25 07:02 eGFR 63.83 07/19/25 07:02 BUN/Creatinine Ratio 17.8 (10-20) 07/19/25 07:02 Glucose 111 mg/dl (70-99(Fasting)) H 07/19/25 07:02 Calcium 9.1 mg/dl (8.6-10.3) 07/19/25 07:02 Impressions Knee X-Ray 07/18/25 14:39 XR knee RT 1 or 2V routine HISTORY: 84 years-old Female Surgical Post Op right knee arthroplasty COMPARISON: 06/21/2020 TECHNIQUE: 2 views of the right knee FINDINGS: Total joint arthroplasty with patellar resurfacing. No acute fracture, dislocation or unexpected opaque foreign body. Expected postoperative soft tissue swelling with deep tissue air. IMPRESSION: Satisfactory alignment of the total arthroplasty. ACT 112: Negative or not required by law. The above report was generated using voice recognition software. It may contain grammatical, syntax or spelling errors. Electronically signed by: Vaibhav Bowen M.D. 07/18/2025 3:27 PM
--- NOTE | 2025-07-19 09:29 | Discharge Summary ---
Date of Service July 19, 2025 Admission HPI Per Admitting Provider History of Present Illness Lesly Melendez is a 84 year old Female who presents today for right knee pain. She localizes her pain to the lateral aspect of her right knee that is accompanied with some right hip pain. She sees no relief with Tylenol, but has taken Aspirin and it has helped relieve pain. Status post right hip hemiarthroplasty and right abductor repair on August 19, [address] Bennett Right knee has hurt for many years. She recently had an injection in September 2024 which gave her about 3 months relief. She had planned to get her knee replaced last year by Dr. Espinosa prior to her fall but she then broke her hip and had to have surgery for that and was then subsequently diagnosed with lung cancer and also had a left lung lobectomy at [facility] on 12/13/2024. She now feels that she is ready to get her knee replaced. She has pain on a daily basis. It is intermittent with intensity of pain. She uses a cane to assist with ambulation. She states that the knee replacement has been a long time coming in and she is anxious to get it completed. She has tried [id number] Tylenol which has not worked well for her in the past. She states she does well with aspirin but has not taken that recently either because of all of her surgeries. She has been scheduled for an elective right total knee arthroplasty with Dr. Tolliver on July 18, 2025. She agrees to proceed with surgery. Admission Exam Per Admitting Provider General: Well-dressed, well-nourished. Normal mood and affect. Alert and orien rupal x3. HEENT: Head: Atraumatic, normocephalic. Eyes: Extraocular movements intact, pupils equal round and reactive to light, sclera normal. Ears: Ears grossly normal, TMs are clear normal light reflex. Nose: Nares are patent bilaterally. Throat: Oropharynx clear mucous membranes moist good dentition uvula midline. Neck: Supple, no lymphadenopathy, nontender palpation, full range of motion. Cardiac: Regular rate and rhythm, normal S1, S2. No murmurs, rubs or gallops appreciated. Lungs: Clear to auscultation bilaterally. No adventitious sounds. No accessory muscle use. Abdomen: Soft, nontender, nondistended, normal bowel sounds heard in all 4 quadrants. Extremities: Focusing on the patient's right lower extremity: Palpable DP and PT pulses ROM: 5 to 110 Skin intact Medial and lateral joint line tenderness Ligament exam: Negative Posterior drawer Pseudolaxity to varus stress, but stable valgus Principal Diagnosis Right knee osteoarthritis Discharge Exam Right knee: Outer dressing was removed. Silverlon is clean dry and intact and left in place. Patient is able to easily transition from a seated to a standing position with her walker. Active knee range of motion is from 0 degrees of extension to near 90 degrees of flexion. She is able to easily perform an active straight leg raise test and actively dorsi and plantarflex her foot. Her calf is soft and supple and nontender to palpation. Her peripheral pulses are 2+. She is neurovascularly intact in the right lower extremity. Discharge Data Allergies Allergy/AdvReac Type Severity Reaction Status Date / Time Sulfa (Sulfonamide Allergy Severe whole Verified 07/18/25 10:58 Antibiotics) face, legs, arms swelling nickel Allergy Mild soreness/swelling Verified 07/18/25 10:58 with earrings lisinopril AdvReac Mild Cough Verified 07/18/25 10:58 Procedures Performed Operation Date: 07/18/25 12:35 Actual Procedures p Right Total Knee Arthroplasty(Right) - Eusebio Tolliver MD Ordered Studies 07/18/25 05:00 US - OR guided needle placemen Routine Hospital Course (1) S/P total knee arthroplasty: Patient had an overnight stay that was uneventful following her right knee replacement. Patient is doing very well today. She has done well with PT and OT. Patient is scheduled to go home today with in-home physical therapy for the first 2 weeks. She states that her son will be staying with her. Weightbearing as tolerated with walker assistance Immobilizer use x 48 hours PT/OT Pain control p.o. medication DVT prophylaxis with with RUPAL stockings and aspirin Ice to the easy wrap Keep Silverlon dressing in place until follow-up Plan is to discharge home today with in-home physical therapy for the first 2 weeks Follow-up at [facility] orthopedics as previously scheduled With questions contact our clinic at [phone] Total Time Total Time Spent Total Time Spent (In Minutes): 25 mins Discharge Plan Discharge Items Patient Disposition: Home - Home Health Services Reason For Visit: Unilateral Primary Osteoarthritis Right Knee Discharge Diagnosis: Right total knee arthroplasty Activity: As commented below Lifting: None Bathing: Keep incision dry Bathing Comment: May shower later today Sexual Activity: Wait until after follow-up appointment Exercise/Sports: Wait until after follow-up appointment Driving/Machine Use: No driving until cleared by volunteer services specialist Weightbearing: Right weightbearing Weightbearing Comment: As tolerated with walker assistance Non-emergency contact: Surgeon Call non-emergency contact if: you have any medication questions, your pain is not controlled, your temperature is above 101.5, your wound has increased drainage and your wound pain has increased Follow-up/Referrals: Naomi Pfeiffer MD [Primary Care Provider] - Diet: Heart Healthy Addtl Attending Provider Instructions: Post-operative Instructions Dear Patient and Family/Friends, Before you are discharged from the hospital, it is important to know what to expect when you get home after surgery. To that end, we have created this sheet of discharge instructions which covers many commonly asked questions. Make sure you go through this sheet in its entirety with your nurse before you are discharged. Please note that we will go over the specifics of your surgery and recovery when you return for your first post-operative visit. Sincerely, Dr. Tolliver Medications 1. Oxycodone 5 mg: Take 1 to 2 tablets every 4-6 hours as needed for postoperative pain control. A prescription for this medication will be sent to your pharmacy. 2. Diclofenac sodium 75 mg: Take 1 tablet twice daily for the first 30 days p ostoperatively for pain and inflammation relief. This will also be sent to your pharmacy with a refill. 3. Aspirin 81 mg: Take 1 tablet twice daily for the first 30 days postoperatively for blood clot prevention. Please purchase the medication. 4. Extra strength Tylenol 500 mg: Take 2 tablets every 6-8 hours as needed for additional supplemental pain control. Please purchase this medication also. Pain Expect to be in a fair amount of pain after surgery. Remember, our goal is not to eliminate your pain, but to make it tolerable. It is a good idea to stay ahead of your pain by taking the medications you were prescribed once you get home. Typically, the pain starts improving 3-7 days after surgery. You should start weaning off the narcotic pain medication (oxycodone, hydrocodone, hydromorphone, morphine) as soon as your pain improves. Please call our office if your pain is not adequately controlled. Ice Ice your operative site at least 5 times a day for 15-30 minutes at a time. Make sure you have a thin cloth between the ice or cooling unit and your skin to prevent jaffe bite. This is especially important if you received a nerve block. Continue icing your operative site for the first 5-7 days after surgery, then as needed. Diet/Nausea/Vomiting Start by drinking clear liquids and eating crackers. If you can tolerate this, then you may resume your normal diet. If you feel nauseated or vomit, take Zofran/ondansetron (if prescribed). Please call our office if you have intractable nausea or vomiting, or, if after hours, you may go to the Emergency Room for help. Constipation Constipation is a common side effect of narcotic pain medication. If you have not had a bowel movement within 2 days after surgery, we recommend purchasing an over the counter laxative such as Milk of Magnesia, Dulcolax, or Miralax from a local pharmacy, and taking it as instructed. Call our clinic if any questions. Slings and Braces If you were placed in a sling or brace, it must be worn at all times, including sleep. You may remove your sling or brace for physical therapy, home exercises, and showering. The length of time you will be in your brace and range of motion restrictions depends on what surgery you had; these details will be reviewed at your first post-operative appointment. Nerve block The anesthesia team sometimes places a nerve block to help with post-operative pain control. This results in significant numbness and inability to move the extremity. The nerve block usually wears off in 8-12 hours, but sometimes can last up to 24 hours. Please call our office if you are still unable to move your extremity after 24 hours, unless you received a pain pump to take home. Nerve blocks typically wear off quickly, so start taking pain medication as soon as you start feeling soreness near your surgical site. Weight bearing and Range of Motion. Do not bear any weight through your operative extremity immediately after surgery. If you had upper extremity surgery, do not lift anything with that arm. If you are in a knee brace, keep it locked in place until your follow-up. We will discuss your weight bearing, range of motion, and lifting restrictions in detail at your first post-operative appointment. Continuous Passive Motion (CPM) Machine If you were prescribed a CPM machine, it will start after your first post- operative appointment, at which time we will give you instructions on the range of motion settings and duration of treatment Physical therapy You will be given a prescription for physical therapy or occupational therapy at your first post-operative appointment. Typically, patients start therapy within 1 week of surgery Wound care and showering We will inspect your wound at your first post-operative visit, and may do a dressing change at that time. Most patients will be in a water-proof dressing that is removed 14 days after surgery. It is normal to see some dried blood on the dressing. Do not remove your dressing, paper strips or sutures yourself unless you are given permission. Showering is allowed the day after surgery. Do not scrub or remove any dressings. The wound should not be submerged underwater (i.e. in a bathtub or pool) until 4 weeks after surgery RUPAL stockings If you were given white stockings, these are to be worn at all times except to shower (on both legs) for the first 2 weeks after surgery. Driving You may not drive while taking narcotic pain medication or while in a cast, splint, sling or brace. You, the patient, need to make the final determination about when you are safe to drive, however, the earliest you may consider driving after surgery is below: Hand/Wrist/Elbow Surgery: 3 days Shoulder Surgery: 2 weeks Hip,/Knee/Ankle Surgery: 4 weeks Fracture repair: 6 weeks Return to Work Your return to work depends on what surgery was done and what type of work you do. Please bring any paperwork your employer needs completed to your first post-operative visit. Also, bring a description of your job duties, as this he lps us to understand what risks you may face at work. Travel Avoid long distance travel (greater than 1 hour) in airplanes and cars for the first 6 weeks after surgery. If you must travel, you need to have a Doppler ultrasound done before you travel to rule out a blood clot in your legs. Follow-up You should have a follow-up appointment already scheduled 1-2 days after surgery. If not, please contact our office to make this appointment before you leave the hospital. When to call the office It is normal to have swelling and bruising in the limb that was operated on. This will improve with time. It is also normal to have fevers for the first 2 days after surgery. Reasons you should call your doctor include: Uncontrolled pain; Nausea, vomiting, or constipation that does not improve with medication; Fevers over 101.5, chills, sweats; Drainage or bleeding from the wound; Foul odor; Spreading areas of redness; Any other concerns. Contact Information Please call Dr. Tolliver's office at [phone] with any concerns. Pending Studies at Discharge: No Stand-Alone Forms: [facility] Medications and DC Order Prescriptions: New aspirin 81 mg Tablet,Delayed Release (Dr/Ec) 81 mg PO BID 30 Days Qty: 60 0RF acetaminophen [Tylenol Extra Strength] 500 mg Tablet 1,000 mg PO Q8 30 Days Qty: 180 0RF oxycodone 5 mg Tablet 5 - 10 mg PO Q4H MDD Max 6/day PRN (Reason: Postoperative pain control) Qty: 28 0RF diclofenac sodium 75 mg tablet,delayed release (DR/EC) 75 mg PO BID 30 Days Qty: 60 1RF Continued amlodipine 5 mg tablet 5 mg PO QAM Qty: 90 1RF Hold Instructions: Resume on 09/13/24. until cleared by PCP. may need to start at a lower dose telmisartan 40 mg tablet 40 mg PO HS Qty: 90 1RF Hold Instructions: Resume on 09/13/24. until cleared by PCP, may need to start one medication first citalopram 10 mg tablet 10 mg PO HS Qty: 90 3RF cholecalciferol (vitamin D3) 25 mcg (1,000 unit) capsule 2,000 unit PO QAM multivitamin Tablet 1 tab PO QAM Jublia 10 % solution with applicator 1 applic topical HS Qty: 8 10RF Rx Instructions: apply to toenails once a day. atorvastatin 20 mg tablet 20 mg PO HS Qty: 90 3RF hydrochlorothiazide 12.5 mg tablet 12.5 mg PO QAM Admission Data Admit Date/Time: 07/18/25 14:39 Attending Provider: Eusebio Tolliver Admit Provider: Eusebio Tolliver Primary Care Provider: Naomi Pfeiffer Other Providers: [facility]; [facility] Other Interventions: Discharge Summary Assessment (RN) Last Done: 07/19/25 11:01
[2025-07-19 10:50] VITALS: O2SAT 96
[2025-07-19 11:06] VITALS: BP 120/66
[2025-07-21] MEDS ORDERED: Scopolamine REMOVE TRANSDERM PATCH ONE (08:00)
== END 2025-07-19 13:01 | disposition home health service (06) ==
LOC: 3W 10:39 → ASU 10:39